=== PATIENT | female | born 1980 | race Caucasian/White ===

== ENCOUNTER → 2022-06-02 08:09 | Outpatient (BNVA) | payer OTHER, SELFPAY | PROVIDERS: Visit Provider Specialist | DX: M25.561 Pain in right knee (principal) | CPT/HCPCS: 73560; 73565 ==

== ENCOUNTER 2022-06-02 11:28 | Outpatient (CLI) | payer OTHER, SELFPAY | END 2022-06-02 11:29 | disposition home or self-care (01) | LOC: SPT 11:28 | PROVIDERS: Visit Provider Specialist | DX: Z46.89 Encounter for fitting and adjustment of other specified devices (principal); M25.561 Pain in right knee | CPT/HCPCS: 97760; L1832 ==

== ENCOUNTER 2022-07-11 20:19 | Emergency (ER) | payer OTHER, MEDICAID, SELFPAY ==
[2022-07-11 20:33] VITALS: PULSE 107; RESP 16; TEMP 36.5; O2SAT 98
--- NOTE | 2022-07-11 22:56 | W.ED.EXTPRO ---
HPI - Extremity Problem General: Chief complaint: Extremity Injury, Lower Stated complaint: right food pain Time Seen by Provider: 07/11/22 22:56 History of Present Illness: 41-year-old female comes in today for complaints of twitching in her right leg. Patient has a injury to her right lower extremity that since having the injury has had increased muscle spasm and twitching spells to her right lower leg. Patient appears nontoxic. Patient appears in mild pain. Associated symptoms: Deny fever(s) Review of Systems Const: Denies: fever(s) Resp: Denies: dyspnea Musc: Reports: extremity pain and muscle cramps [facility] ED PFSH: Social History Smoking and tobacco status: current every day smoker Physical Exam Const: COMMON NORMALS: alert HENMT: COMMON NORMALS: atraumatic HEAD & SCALP: atraumatic Resp: COMMON NORMALS: normal respiratory effort and clear to auscultation bilaterally AUSCULTATION: clear to auscultation bilaterally Cardio: COMMON NORMALS: regular rate and regular rhythm RATE: regular rate RHYTHM: regular rhythm Extremity: RIGHT LOWER EXTREMITY: Yes knee joint (Tenderness) Neuro: SENSORIUM/ORIENTATION: Yes alert Skin: COMMON NORMALS: no rashes or lesions noted GENERAL SKIN EXAM: no rashes or lesions noted Course Vital Signs: Vital signs: Vital Signs Temperature 97.7 F 07/11/22 20:33 Pulse Rate 107 H 07/11/22 20:33 Respiratory Rate 16 07/11/22 20:33 Pulse Oximetry 98 07/11/22 20:33 Oxygen Delivery Me thod 07/11/22 20:33 MDM - Extremity (Nontraumatic) Medical Decision Making Patient comes in for pain and twitching to her right lower extremity since injuring it over 2 months ago. Patient has been seen by the orthopedist and is being further evaluated for nerve injury or other abnormalities. On exam extremity appears unremarkable. Patient does wear a knee immobilizer. No obvious swelling or erythema is noted to the leg. Differential diagnosis includes but not limited to lumbar radiculopathy, muscle spasms, malingering, conversion disorder. Patient should continue her care with her orthopedist with recommendations of treatment and further evaluation. Patient was given a 30 mg injection of Toradol for pain, 60 mg of orphenadrine for muscle spasm, and 1 mg of Ativan for twitching. I suspect patient probably has a personality disorder that is exaggerating her injury. We will give her lorazepam 1 mg to take at bedtime so that she can rest and hopefully improve her symptoms. Patient should continue with her routine care as prescribed by her primary care. Discharge Plan Discharge Patient Disposition: Home Clinical Impression: Muscle spasm Condition: Stable Prescriptions: New lorazepam 1 mg tablet 1 mg PO DAILY PRN (Reason: muscle spasm, sleep) Qty: 10 0RF No Action tizanidine 4 mg capsule 4 mg PO Q8H PRN tramadol 50 mg tablet 50 mg PO Q4H PRN (DME) EDWARDO See Rx Instructions .ROUTE .MEDSUPPLY Qty: 1 0RF Rx Instructions: As directed Discharge Orders: Discharge ED (Routine); Ordered 07/11/22 Ordered By: Abrahan Alvarez Referrals: Sylvia Lopez, STRAP SETTER [Primary Care Provider] - Discharge Diet: Usual diet Discharge Activity: Increase activity as tolerated Patient Instructions: Muscle Spasm (ED), Pain Management Activity Restrictions/Additional Instructions: Activity as tolerated. Gentle stretching and range of motion exercises. Use lorazepam in the late evening to help control spasms at night. Follow-up with primary care for further instruction and evaluation. Return to ER for worsening symptoms such as increased redness and swelling to the extremity, fever greater than 100.4, or new concerns. Coding Level of Care Code ED Welt S[employer] Layer for Yfn Mohr
[2022-07-11 23:37] VITALS: BP 136/77; PULSE 98; RESP 16; TEMP 36.5; O2SAT 98
[2022-07-11] MEDS: ketorolac 30 mg/mL INJ IM (23:37)
[2022-07-11] MEDS: orphenadrine 30 mg/mL Inj 2 mL 60 MG IM (23:37)
[2022-07-11] MEDS: LORazepam 1 mg Tablet PO (23:37)
== END 2022-07-11 23:39 | disposition home or self-care (01) ==
PROVIDERS: Emergency Provider Nurse Practitioner Family; PCP Nurse Practitioner Primary Care
DX: M62.838 Other muscle spasm (principal)
CPT/HCPCS: 96372; 99284; J1885; J2360

== ENCOUNTER 2022-07-18 07:55 | Outpatient (CLI) | payer OTHER, MEDICAID, SELFPAY ==
--- NOTE | 2022-07-18 09:30 | MR_ITS ---
WS: [id number] MRI right knee arthrogram, pre and postcontrast. COMPARISON: No similar studies. HISTORY: Remote surgery RIGHT knee. New pain after fall 2010 weeks ago. Precontrast: Noncontrast multisequence evaluation through the knee has been performed. Normal appearance of the ACL and PCL. Distal quadriceps tendon and patellar tendon are normal. There is a very small amount of fluid in the suprapatellar bursa. No meniscal tear is identified. No signif icant marrow edema or fracture. No Castillo's cyst. Seen best on the coronal T2 fat saturation images is a 2.3 mm hypointense nodule within the fluid of the medial compartment. This is close to the interco ndylar notch. This is probably a small loose body. May be a cartilage fragment the donor site is not evident. Very minimal surface irregularity involving the medial tibial plateau. Postcontrast: Good contrast distention of the knee joint. There is an air bubble noted within the sup rapatellar contrast. There is a very tiny superficial cartilaginous defect which fills with contrast involving the lateral patellar facet. No underlying marrow abnormality. No meniscal tears. No contras t extends into the meniscus and the ACL is intact. Again noted is that small loose body in the medial joint space adjacent to the PCL. MR/MR knee RT wo/w con [id number] IMPRESSION: 1. No meniscal tear or ACL tear. 2. Superficial small cartilaginous defect lateral patellar facet. 3. Small loose body type nodule measuring 2.3 mm in the medial joint space. May be a cartilage or meniscal fragment. No donor site evident. 4. Very minimal early degenerative changes superficial medial tibial plateau.
== END 2022-07-18 07:56 | disposition home or self-care (01) ==
LOC: RAD 07:57
PROVIDERS: PCP Nurse Practitioner Primary Care; Visit Provider Specialist
DX: S89.91XA Unspecified injury of right lower leg, initial encounter (principal); W19.XXXA Unspecified fall, initial encounter
CPT/HCPCS: 73723

== ENCOUNTER 2022-07-18 07:55 | Outpatient (CLI) | payer OTHER, MEDICAID, SELFPAY ==
--- NOTE | 2022-07-18 09:00 | IR_ITS ---
WS: [id number] RIGHT KNEE ARTHROGRAM (FLUOROSCOPY) RIGHT arthrogram was performed in fluoroscopy prior to MRI evaluation. HISTORY: knee injury and previous surgery COMPARISON: Radiograph 06/02/2022 Procedure, risks and complications were explained to the patient. Complications include but not limit ed to bleeding, infection and contrast reaction. Current medications are reviewed. Skin is cleansed with ChloraPrep. Skin is anesthetized with 1% buffered lidocaine. 22-gauge needle is inserted into the lateral patellofemoral joint space. Approximately 25 cc of gadolinium mixture inje cted without complication. Patient will proceed to MRI evaluation immediately. No complications were encountered. Patient is instructed to watch for post procedure infection or ble eding. Patient is also instructed to contact the radiology department with any concerns. IR/[place] [id number] IMPRESSION: Uncomplicated RIGHT knee joint injection prior to MRI arthrogram.
[2022-07-18] MEDS: iohexol 240 mg/mL 50 mL Btl INTRA-ARTI (10:29)
[2022-07-18] MEDS: gadobenate dimeglumine 5 mL vial XX (10:31)
== END 2022-07-18 07:56 | disposition home or self-care (01) ==
LOC: RAD 07:57
PROVIDERS: PCP Nurse Practitioner Primary Care; Visit Provider Specialist
DX: S89.91XA Unspecified injury of right lower leg, initial encounter (principal); X58.XXXA Exposure to other specified factors, initial encounter
CPT/HCPCS: 27369; 77002

== ENCOUNTER → 2023-03-20 08:24 | Outpatient (BNVA) | payer MEDICAID, SELFPAY | PROVIDERS: PCP Nurse Practitioner Primary Care; Visit Provider Podiatrist Foot & Ankle Surgery | DX: G90.521 Complex regional pain syndrome I of right lower limb (principal); F44.6 Conversion disorder with sensory symptom or deficit | CPT/HCPCS: 73630 ==

== ENCOUNTER 2023-04-03 06:19 | Outpatient (CLI) | payer MEDICAID, SELFPAY | END 2023-04-03 06:20 | disposition home or self-care (01) | LOC: SPT 06-23 06:20 | PROVIDERS: PCP Nurse Practitioner Primary Care; Visit Provider Podiatrist Foot & Ankle Surgery | DX: Z46.89 Encounter for fitting and adjustment of other specified devices (principal); M79.671 Pain in right foot | CPT/HCPCS: L4361 ==

== ENCOUNTER 2023-08-02 00:04 | Emergency (ER) | payer MEDICAID, SELFPAY ==
[2023-08-02 00:07] VITALS: BP 112/89; PULSE 92; RESP 18; TEMP 36.4; O2SAT 97; BMI 32.2
[2023-08-02 00:13] VITALS: RESP 18; O2SAT 98
--- NOTE | 2023-08-02 00:55 | XRR_ITS ---
PROCEDURE INFORMATION: Exam: XR Lumbosacral Spine Exam date and time: 08/02/2023 1:31 AM Age: 43 years old Clinical indication: Patient HX: C/O low back pain. No injury. ; Additional info: R sided back pain TECHNIQUE: Imaging protocol: Radiologic exam of the lumbosacral spine. Views: 2 or 3 views. COMPARISON: No relevant prior studies available. FINDINGS: Bones/joints: Normal. No acute fracture. Normal alignment. Soft tissues: Unremarkable. XR/XR lumbar spine 2-3V* [id number] IMPRESSION: No acute findings.
[2023-08-02 01:16] VITALS: RESP 18; O2SAT 98
[2023-08-02] MEDS: HYDROmorphone 1 mg/mL INJ 1 mL 2 MG IM (01:16)
[2023-08-02] MEDS: ondansetron 4 MG Tablet PO (01:16)
[2023-08-02] MEDS: ketorolac 60 mg/2 mL INJ IM (01:17)
--- NOTE | 2023-08-02 01:37 | W.ED.EXTPRO ---
HPI - Extremity Problem General: Chief complaint: Extremity Injury, Lower Stated complaint: BACK AND LEG PAIN Time Seen by Provider: 08/02/23 00:12 History of Present Illness: 43-year-old female evidently with a history of CRPS of the right foot. She presents after stepping off a curb feeling a sharp pain to the right side of her low back, that radiated down her leg. Pain radiates down the lateral thigh into the leg. No weakness. No loss of bowel or bladder control. No numbness to the groin or genital areas. Pain is excruciating she says. She took tramadol x2 and cyclobenzaprine at home without significant improvement. She denies fever. Associated symptoms: Deny chest pain, fever(s) or rash Review of Systems Const: Denies: fever(s) Eyes: Denies: change in vision ENMT: Denies: throat pain Card: Denies: chest pain or palpitations Resp: Denies: dyspnea, productive cough or non-productive cough GI: Denies: abdominal pain or vomiting Musc: Reports: back pain; Denies: neck pain Skin/Breast: Denies: rash PFSH ED PFSH: Social History Smoking and tobacco status: current every day smoker Alcohol intake: never Substance/Drug Use: never Physical Exam Const: GENERAL APPEARANCE: cooperative and anxious; not frail appearing HENMT: COMMON NORMALS: normocephalic, atraumatic and Normal external nose present HEAD & SCALP: normocephalic and atraumatic FACE & SINUS: normal facial exam and face symmetric NOSE: Normal external nose present Eye: COMMON NORMALS: Equal, round and reactive pupils present and EOMs intact bilaterally PUPIL: Yes Equal, round and reactive pupils present Neck/C-Spine: GENERAL: Yes trachea midline Chest: CHEST: Yes Symmetrical chest wall rise Resp: COMMON NORMALS: normal respiratory effort, No retractions, No use of accessory muscles and clear to auscultation bilaterally AUSCULTATION: clear to auscultation bilaterally Cardio: COMMON NORMALS: regular rate and regular rhythm RATE: regular rate RHYTHM: regular rhythm GI: COMMON NORMALS: Normal to inspection, nondistended, normoactive bowel sounds present Back/Pelvis: OTHER: Examination reveals tenderness to palpation over the right SI joint, lumbosacral junction, and L5. There is some gluteal tenderness as well. Muscle spasm palpated on the right. None on the left. Less significant midline tenderness. Extremity: COMMON NORMALS: no pedal edema Neuro: MOLLY COMA SCALE: document GCS findings [place] coma scale eye opening: Spontaneous [place] coma scale verbal response: Orientated [place] coma scale motor response: Obey commands [place] coma scale total score: 15 SENSORY EXAM: Yes extremities (intact) Psych: COMMON NORMALS: speech normal SPEECH: Yes normal speech Skin: COMMON NORMALS: no rashes or lesions noted GENERAL SKIN EXAM: no rashes or lesions noted Course Vital Signs: Vital signs: Vital Signs Temperature 97.5 F L 08/02/23 00:07 Pulse Rate 89 08/02/23 03:04 Respiratory Rate 18 08/02/23 03:04 Blood Pressure 139/72 08/02/23 03:04 Pulse Oximetry 97 08/02/23 03:04 Oxygen Delivery Me thod Room Air 08/02/23 00:13 MDM - Extremity (Nontraumatic) Medical Decision Making X-ray reveals significant disc space narrowing at L5-S1. No fractures. Pain is improved after injections here. She will also receive oral dexamethasone here, followed by steroid taper. Outpatient follow-up. Lab Data Radiology Impressions Lumbar Spine X-Ray 08/02/23 00:55 IMPRESSION: No acute findings. XR interpretation done by ED provider, pending radiology final review Discharge Plan Discharge Patient Disposition: Home Clinical Impression: Lumbar radiculopathy, acute Condition: Stable Prescriptions: New Percocet 7.5-325 mg tablet 1 tab PO Q6H PRN (Reason: pain) Qty: 7 0RF Medrol (Balaji) 4 mg tablets,dose pack See Rx Instructions .ROUTE .COMPLEX Qty: 21 0RF Rx Instructions: orally per package directions No Action diazepam 10 mg tablet 10 mg PO ONCE PRN (Reason: anxiety) 1 Days Qty: 2 3RF Rx Instructions: Take 1 prior to procedure and repeat if necessary flexril 10 mg PO BID Qty: 30 1RF clotrimazole-betamethasone 1-0.05 % cream 1 applic topical BID 28 Days Qty: 45 0RF (DME) AFO Brace to The Right Ankle See Rx Instructions .Route .MEDSUPPLY Qty: 1 0RF Rx Instructions: As directed tramadol 50 mg tablet 50 mg PO Q4H PRN gabapentin 400 mg capsule 800 mg PO TID 90 Days Qty: 540 3RF Rx Instructions: 800 mg orally three times daily (DME) CAM Boot See Rx Instructions .Route .MEDSUPPLY Qty: 1 0RF Rx Instructions: As directed Botox 100 unit recon soln 300 unit SUBCUT ONCE Qty: 3 0RF omeprazole 20 mg capsule,delayed release(DR/EC) 20 mg PO DAILY cyclobenzaprine 10 mg tablet See Rx Instructions .ROUTE .COMPLEX Qty: 30 0RF Dose Instruction: TAKE 1 TABLET BY MOUTH EVERY 12 HOURS Rx Instructions: TAKE 1 TABLET BY MOUTH EVERY 12 HOURS Discharge Orders: Discharge ED (Routine); Ordered 08/02/23 Ordered By: Etienne Lloyd Referrals: Sylvia Lopez, CERAMIC TILE INSTALLER [Primary Care Provider] - 1-3 days Patient Instructions: Lumbar Radiculopathy (ED), Opioid Safety, Pain Management Activity Restrictions/Additional Instructions: Medications as directed. Ice or heat may help. Gentle stretching may help as well. Follow-up with your doctor this coming week. Further treatment or testing may be needed. Alternate pain medication with anti-inflammatories. Coding Level of Care Code ED Diversity Intern for Yfn Mohr
[2023-08-02] MEDS: dexamethasone 4 mg Tablet 10 MG PO (02:17)
[2023-08-02] MEDS: orphenadrine 30 mg/mL Inj 2 mL 60 MG IM (02:22)
[2023-08-02 03:04] VITALS: BP 139/72; PULSE 89; RESP 18; O2SAT 97
== END 2023-08-02 03:06 | disposition home or self-care (01) ==
PROVIDERS: Emergency Provider Emergency Medicine; PCP Nurse Practitioner Primary Care
DX: M54.16 Radiculopathy, lumbar region (principal); F17.210 Nicotine dependence, cigarettes, uncomplicated
CPT/HCPCS: 72100; 96372; 99284; J1170; J1885; J2360; J8540; Q0162

== ENCOUNTER 2023-09-04 20:54 | Emergency (ER) | payer MEDICAID, SELFPAY ==
[2023-09-04 20:59] VITALS: BP 109/76; PULSE 98; RESP 18; TEMP 36.8; O2SAT 97; BMI 32.2
--- NOTE | 2023-09-04 21:11 | ED_ITS ---
HPI - Headache General: Chief Complaint: Headache Stated Complaint: Headache Time Seen by Provider: 09/04/23 21:11 History of Present Illness: 43-year-old female comes in today with complaints of headache. Patient reports that she started having had a headache 3 days ago and over the last 2 days is progressed to a migraine headache. Patient is light sensitive with nausea. Patient has used home medications with minimal to no relief of pain. Patient does routinely take narcotics for chronic pain syndrome. Patient appears nontoxic. Patient appears in moderate to severe pain. Associated symptoms: Reports nausea; Deny chest pain or fever(s) Review of Systems General: Reports: 10 or more systems reviewed and unremarkable except in HPI and below Const: Denies: fever(s) Eyes: Reports: photophobia Card: Denies: chest pain Resp: Denies: dyspnea GI: Reports: nausea Neuro: Reports: headache(s) PFSH ED PFSH: Social History Smoking and tobacco/nicotine status: current every day tobacco/nicotine user Alcohol intake: never Substance/Drug Use: never Physical Exam Const: COMMON NORMALS: alert HENMT: COMMON NORMALS: normocephalic HEAD & SCALP: normocephalic Neck/C-Spine: COMMON NORMALS: full ROM Resp: COMMON NORMALS: normal respiratory effort and clear to auscultation bilaterally AUSCULTATION: clear to auscultation bilaterally Cardio: COMMON NORMALS: regular rate and regular rhythm RATE: regular rate RHYTHM: regular rhythm Back/Pelvis: COMMON NORMALS: thoracic and lumbar spine normal to inspection Extremity: COMMON NORMALS: normal to inspection NARRATIVE EXTREMITY EXAM: Leg brace to the right lower extremity. Neuro: SENSORIUM/ORIENTATION: Yes alert Skin: COMMON NORMALS: no rashes or lesions noted GENERAL SKIN EXAM: no rashes or lesions noted Course Vital Signs: Vital signs: Vital Signs Temperature 98.2 F 09/04/23 20:59 Pulse Rate 98 09/04/23 20:59 Respiratory Rate 18 09/04/23 20:59 Blood Pressure 109/76 09/04/23 20:59 Pulse Oximetry 97 09/04/23 20:59 Oxygen Delivery Me thod Room Air 09/04/23 20:59 MDM - Headache Medical Decision Making 43-year-old female comes in today for complaints of headache. On exam patient appears nontoxic. Patient appears in moderate to severe pain. Respirations are even lungs are clear to auscultation. Patient moves all extremities well. Patient does have a spasm in the right lower leg that she reports is uncontrollable. No focal neural deficits otherwise is noted. Differential diagnosis includes migraine headache, malingering, somatic syndrome, exacerbation of chronic pain syndrome. Headache was treated with 15 mg ketorolac, 10 mg metoclopramide, 50 mg diphenhydramine, and 10 mg of dexamethasone. Patient had good results for headache control and was discharged home. Patient was stable at discharge. No radiology studies performed this visit Discharge Plan Discharge Patient Disposition: Home Clinical Impression: Migraine Qualifiers: Migraine type: unspecified Status migrainosus presence: without status migrainosus Intractability: not intractable Qualified Code(s): G43.909 - Migraine, unspecified, not intractable, without status migrainosus Condition: Stable Prescriptions: No Action diazepam 10 mg tablet 10 mg PO ONCE PRN (Reason: anxiety) 1 Days Qty: 2 3RF Rx Instructions: Take 1 prior to procedure and repeat if necessary clotrimazole-betamethasone 1-0.05 % cream 1 applic topical BID 28 Days Qty: 45 0RF (DME) AFO Brace to The Right Ankle See Rx Instructions .Route .MEDSUPPLY Qty: 1 0RF Rx Instructions: As directed tramadol 50 mg tablet 50 mg PO Q4H PRN gabapentin 400 mg capsule 800 mg PO TID 90 Days Qty: 540 3RF Rx Instructions: 800 mg orally three times daily (DME) CAM Boot See Rx Instructions .Route .MEDSUPPLY Qty: 1 0RF Rx Instructions: As directed Botox 100 unit recon soln 300 unit SUBCUT ONCE Qty: 3 0RF omeprazole 20 mg capsule,delayed release(DR/EC) 20 mg PO DAILY cyclobenzaprine 10 mg tablet See Rx Instructions .ROUTE .COMPLEX Qty: 30 0RF Dose Instruction: TAKE 1 TABLET BY MOUTH EVERY 12 HOURS Rx Instructions: TAKE 1 TABLET BY MOUTH EVERY 12 HOURS flexril 10 mg PO BID Qty: 30 1RF Percocet 7.5-325 mg tablet 1 tab PO Q6H PRN (Reason: pain) Qty: 7 0RF Medrol (Balaji) 4 mg tablets,dose pack See Rx Instructions .ROUTE .COMPLEX Qty: 21 0RF Rx Instructions: orally per package directions Discharge Orders: Discharge ED (Routine); Ordered 09/04/23 Ordered By: Abrahan Alvarez Referrals: Sylvia Lopez FNP [Primary Care Provider] - Discharge Diet: Advance as tolerated Discharge Activity: Increase activity as tolerated Patient Instructions: Migraine Headache (ED) Activity Restrictions/Additional Instructions: Home and rest. Continue with routine care. Follow-up with primary care as n eeded for further instructions. Return to ED for new concerns. Coding Level of Care Code ED Water And Gas Helper for Yfn Mohr
[2023-09-04] MEDS: ketorolac 30 mg/mL INJ 15 MG IVP (21:44)
[2023-09-04] MEDS: diphenhydrAMINE 50 mg/mL SDV 1mL IVP (21:44)
[2023-09-04] MEDS: dexamethasone 10 mg/mL INJ IVP (21:44)
[2023-09-04] MEDS: sodium chloride 0.9% 500 ML 999 ML IV (21:45)
[2023-09-04] MEDS: metoclopramide 5 mg/mL SDV 2 mL 10 MG IVP (21:45)
== END 2023-09-04 23:01 | disposition home or self-care (01) ==
PROVIDERS: Emergency Provider Nurse Practitioner Family; PCP Nurse Practitioner Primary Care
DX: G43.909 Migraine, unspecified, not intractable, without status migrainosus (principal); Z72.0 Tobacco use
CPT/HCPCS: 96374; 96375; 99284; J1100; J1200; J1885; J2765; J7040

== ENCOUNTER 2023-09-11 14:14 | Emergency (ER) | payer MEDICAID, SELFPAY ==
[2023-09-11 14:44] VITALS: BP 121/77; PULSE 82; RESP 18; TEMP 36.8; O2SAT 99; BMI 32.8
--- NOTE | 2023-09-11 15:18 | ED_ITS ---
HPI - Extremity Problem General: Chief complaint: Extremity Injury, Lower Stated complaint: right leg/hip pain Time Seen by Provider: 09/11/23 14:19 Source: patient Mode of arrival: wheelchair Limitations: no limitations History of Present Illness: Patient is a 43-year-old female with a complex medical history involving her right lower leg here for complaints of right lower leg pain and spasm. She s tates she has been having worsening pain in her right lower extremity for several days. Patient states she started having severe spasms in the foot. Patient has seen multiple specialists for evaluation of her leg pain including Dr. Steel with pain management, Dr. Winter with neurology, Dr. Reyes with podiatry. 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 Patient states she takes flexeril, gabapentin, and tramadol daily for her symptoms. She has also received Botox from Dr. Winter. She states she has an appointment with Dr. Winter on Thursday. MD Complaint: extremity pain Onset (ago): day(s) Pain Consistency: constant Location: right and lower extremity Severity scale (1-10): 10 Quality: sharp and constant Radiation: distal Relieving factors: nothing Exacerbating factors: walking Associated symptoms: Reports no associated symptoms; Deny chest pain or fever(s) Review of Systems Const: Denies: fever(s), chills, body aches, fatigue or malaise Card: Denies: chest pain Resp: Denies: dyspnea Musc: Reports: extremity pain and muscle cramps; Denies: neck pain, back pain, extremity swelling, joint pain, joint swelling, joint redness, joint warmth, joint stiffness, decrease in muscle mass, loss of height or deformity Neuro: Reports: sensory changes (reports needle sensations to R LE) and difficulty walking; Denies: numbness in extremities PFS ED PFSH: Social History Smoking and tobacco/nicotine status: current every day tobacco/nicotine user Alcohol intake: never Substance/Drug Use: never Physical Exam Const: COMMON NORMALS: no acute distress, patient oriented x3, no limitations, alert and well nourished Resp: COMMON NORMALS: normal respiratory effort and clear to auscultation bilaterally AUSCULTATION: clear to auscultation bilaterally Cardio: COMMON NORMALS: regular rate and regular rhythm RATE: regular rate RHYTHM: regular rhythm Back/Pelvis: COMMON NORMALS: thoracic and lumbar spine normal to inspection, no thoracic nor lumbar tenderness and thoraco-lumbar ROM normal THORACIC SPINE/UPPER BACK: Yes normal to inspection, No thoracic spinal tenderness, No paraspinal muscle tenderness and No paraspinal muscle spasm LUMBAR SPINE/LOWER BACK: Yes normal to inspection, No lumbar spinal tenderness, Yes paraspinal muscle tenderness and No paraspinal muscle spasm PELVIS: Yes sciatic notch tenderness SACRUM: no tenderness COCCYX: no tenderness Extremity: COMMON NORMALS: capillary refill normal, no joint enlargement, no clubbing, cyanosis or edema, no calf tenderness and no pedal edema NARRATIVE EXTREMITY EXAM: R foot spasm; R LE is equal color/temp compared to L; distal pulses easily palpable with brisk cap refill GENERAL: Yes normal exam except as noted Neuro: COMMON NORMALS: patient oriented x3, moves all extremities and no focal motor deficits SENSORIUM/ORIENTATION: Yes alert Skin: COMMON NORMALS: no rashes or lesions noted GENERAL SKIN EXAM: no rashes or lesions noted Course Vital Signs: Vital signs: Vital Signs Temperature 98.3 F 09/11/23 14:44 Pulse Rate 82 09/11/23 14:44 Respiratory Rate 18 09/11/23 15:42 Blood Pressure 121/77 09/11/23 14:44 Pulse Oximetry 99 09/11/23 14:44 Oxygen Delivery Me thod Room Air 09/11/23 14:44 MDM - Extremity (Nontraumatic) Medical Decision Making Patient here with a complex history involving her right lower extremity. Patient feeling somewhat better after medications given here. She is requesting a different muscle relaxer at home as she feels the Flexeril is no longer working. We will try Methocarbamol. We will place her on Dexamethasone over the next few days. She can continue her Tramadol as well as her Gabapentin. She states she has follow-up with Dr. Winter on Thursday. Medical Records I reviewed the patient's medical records. No radiology studies performed this visit Discharge Plan Discharge Patient Disposition: Home Clinical Impression: Pain of right leg Condition: Stable Prescriptions: New methocarbamol 500 mg tablet 1,000 mg PO Q8H Qty: 30 0RF dexamethasone 6 mg tablet 6 mg PO DAILY Qty: 6 0RF Continued tramadol 50 mg tablet 50 mg PO Q4H PRN gabapentin 400 mg capsule 800 mg PO TID 90 Days Qty: 540 3RF Rx Instructions: 800 mg orally three times daily Discontinued cyclobenzaprine 10 mg tablet See Rx Instructions .ROUTE .COMPLEX Qty: 30 0RF Dose Instruction: TAKE 1 TABLET BY MOUTH EVERY 12 HOURS Rx Instructions: TAKE 1 TABLET BY MOUTH EVERY 12 HOURS methylprednisolone [Medrol (Balaji)] 4 mg tablets,dose pack See Rx Instructions .ROUTE .COMPLEX Qty: 21 0RF Rx Instructions: orally per package directions No Action diazepam 10 mg tablet 10 mg PO ONCE PRN (Reason: anxiety) 1 Days Qty: 2 3RF Rx Instructions: Take 1 prior to procedure and repeat if necessary clotrimazole-betamethasone 1-0.05 % cream 1 applic topical BID 28 Days Qty: 45 0RF (DME) AFO Brace to The Right Ankle See Rx Instructions .Route .MEDSUPPLY Qty: 1 0RF Rx Instructions: As directed (DME) CAM Boot See Rx Instructions .Route .MEDSUPPLY Qty: 1 0RF Rx Instructions: As directed Botox 100 unit recon soln 300 unit SUBCUT ONCE Qty: 3 0RF omeprazole 20 mg capsule,delayed release(DR/EC) 20 mg PO DAILY flexril 10 mg PO BID Qty: 30 1RF Percocet 7.5-325 mg tablet 1 tab PO Q6H PRN (Reason: pain) Qty: 7 0RF Discharge Orders: Discharge ED (Routine); Ordered 09/11/23 Ordered By: Vianca Daivs Referrals: Sylvia Lopez, RUBBING BED OPERATOR [Primary Care Provider] - Activity Restrictions/Additional Instructions: As we discussed we will switch her muscle relaxer from Flexeril to Meth ocarbamol. We will put you on steroids over the next few days. You can continue your Gabapentin and Tramadol. You may also take an ojqo-vis-dhyreys anti-inflammatory such as Ibuprofen/Motrin. Please follow-up with Dr. Winter on Thursday as scheduled. Coding Level of Care Code ED Manager Hydraulic for Yfn Mohr
[2023-09-11] MEDS: dexamethasone 10 mg/mL INJ 8 MG IV (15:36)
[2023-09-11] MEDS: ketorolac 30 mg/mL INJ IVP (15:39)
[2023-09-11 15:42] VITALS: RESP 18
[2023-09-11] MEDS: HYDROmorphone 1 mg/mL INJ 1 mL 0.5 MG IVP (15:42)
[2023-09-11] MEDS: orphenadrine 30 mg/mL Inj 2 mL 60 MG IV (15:42)
[2023-09-11 16:53] VITALS: BP 135/78; PULSE 77; O2SAT 96
== END 2023-09-11 16:57 | disposition home or self-care (01) ==
PROVIDERS: Emergency Provider Physician Assistant; PCP Nurse Practitioner Primary Care
DX: M79.604 Pain in right leg (principal); Z72.0 Tobacco use
CPT/HCPCS: 96374; 96375; 99284; J1100; J1170; J1885; J2360

== ENCOUNTER 2023-10-26 09:57 | Emergency (ER) | payer MEDICAID, SELFPAY ==
[2023-10-26 10:03] VITALS: BP 128/110; PULSE 90; RESP 96; TEMP 36.8; O2SAT 18; BMI 32.2
--- NOTE | 2023-10-26 10:06 | W.ED.LOWEXIN ---
HPI - Extremity Injury (Lower) General: Chief Complaint: Back Pain/Injury Stated Complaint: right leg and hip pain Time Seen by Provider: 10/26/23 09:59 Source: patient Mode of arrival: ambulatory History of Present Illness: 43-year-old female presents emergency room complaining of pain in her right leg with intermittent spasms which increased during the course of interview and exam. She states she was supposed to see Dr. Winter today in her office. Evidently there is some confusion with the scheduling of the appointment as it is New Year's Day. Patient has had multiple extensive workups and evaluations and has received Botox in the past for this. She has seen pain clinic as well. Notes from Dr. Winter reviewed. No recent trauma. Relieving factors: nothing Exacerbating factors: nothing Review of Systems Const: Denies: fever(s) or chills Card: Denies: chest pain Resp: Denies: dyspnea GI: Denies: abdominal pain : Denies: dysuria, urinary frequency or urinary urgency Musc: Denies: neck pain or back pain Skin/Breast: Denies: rash PFSH ED PFSH: Social History Smoking and tobacco/nicotine status: current every day tobacco/nicotine user Alcohol intake: never Substance/Drug Use: never Physical Exam Const: COMMON NORMALS: no acute distress GENERAL APPEARANCE: cooperative and comfortable ORIENTATION/CONSCIOUSNESS: Yes awake, Yes oriented to person, Yes oriented to place and Yes oriented to time HENMT: COMMON NORMALS: normocephalic, atraumatic and hearing grossly normal bilaterally HEAD & SCALP: normocephalic and atraumatic Resp: COMMON NORMALS: normal respiratory effort, No retractions, No use of accessory muscles and clear to auscultation bilaterally AUSCULTATION: clear to auscultation bilaterally Cardio: COMMON NORMALS: regular rate, regular rhythm and No murmurs present (Cardio) RATE: regular rate RHYTHM: regular rhythm GI: COMMON NORMALS: Soft to palpation and No hepatosplenomegaly present AUSCULTATION: Yes normoactive bowel sounds PALPATION: Yes Soft to palpation, No Tenderness to palpation present (GI), No Guarding due to palpation present (GI) and Yes No hepatosplenomegaly present Extremity: COMMON NORMALS: normal to inspection, capillary refill normal, no clubbing, cyanosis or edema, no calf tenderness and no pedal edema Neuro: SENSORIUM/ORIENTATION: Yes oriented to person, Yes oriented to place and Yes oriented to time Skin: COMMON NORMALS: no rashes or lesions noted GENERAL SKIN EXAM: no rashes or lesions noted Course Vital Signs: Vital signs: Vital Signs Temperature 98.3 F 10/26/23 10:03 Pulse Rate 69 10/26/23 11:32 Respiratory Rate 18 10/26/23 11:32 Blood Pressure 123/76 10/26/23 11:32 Pulse Oximetry 96 10/26/23 11:32 Oxygen Delivery Me thod Room Air 10/26/23 10:09 MDM - Extremity Injury (Lower) Medical Decision Making Symptoms slightly improved with steroids and muscle relaxer. Discharged home on steroid taper try tizanidine as a muscle relaxer stop the others follow-up with neurology. These do appear to be more functional by observation spoke with patient who the emergency room. Medical Records I reviewed the patient's medical records. No radiology studies performed this visit Discharge Plan Discharge Patient Disposition: Home Clinical Impression: Right leg pain, Complex regional pain syndrome, Functional neurological symptom disorder with anesthesia or sensory loss Condition: Stable Prescriptions: New tizanidine 4 mg tablet 4 mg PO Q6H PRN (Reason: muscle spasticity) Qty: 20 0RF Rx Instructions: do not exceed 3 doses per 24 hrs prednisone 20 mg tablet 20 mg PO TID Qty: 15 0RF Rx Instructions: 1 p.o. 3 times daily x3 days, 1 p.o. twice daily x2 days, 1 p.o. daily x2 days Discontinued flexril 10 mg PO BID Qty: 30 1RF methocarbamol 500 mg tablet 1,000 mg PO Q8H Qty: 60 0RF dexamethasone 6 mg tablet 6 mg PO DAILY Qty: 6 0RF No Action diazepam 10 mg tablet 10 mg PO ONCE PRN (Reason: anxiety) 1 Days Qty: 2 3RF Rx Instructions: Take 1 prior to procedure and repeat if necessary clotrimazole-betamethasone 1-0.05 % cream 1 applic topical BID 28 Days Qty: 45 0RF (DME) AFO Brace to The Right Ankle See Rx Instructions .Route .MEDSUPPLY Qty: 1 0RF Rx Instructions: As directed tramadol 50 mg tablet 50 mg PO Q4H PRN gabapentin 400 mg capsule 800 mg PO TID 90 Days Qty: 540 3RF Rx Instructions: 800 mg orally three times daily (DME) CAM Boot See Rx Instructions .Route .MEDSUPPLY Qty: 1 0RF Rx Instructions: As directed Botox 100 unit recon soln 300 unit SUBCUT ONCE Qty: 3 0RF omeprazole 20 mg capsule,delayed release(DR/EC) 20 mg PO DAILY Percocet 7.5-325 mg tablet 1 tab PO Q6H PRN (Reason: pain) Qty: 7 0RF Discharge Orders: Discharge ED (Routine); Ordered 10/26/23 Ordered By: Saul Reddy Referrals: Sylvia Lopez, UNDERCOLLAR MAKER [Primary Care Provider] - Discharge Diet: Usual diet Discharge Activity: Increase activity as tolerated Patient Instructions: Opioid Safety, Pain Management Activity Restrictions/Additional Instructions: Thank you for choosing [facility] for your healthcare needs today. Please realize this is an emergency room and that we are providing you with a medical screening exam and this may not be complete and all inclusive of all the testing and or work up that you may need to determine your ailment or severity of your illness. It is very important that you follow up as instructed or that you return to the Emergency Department should you have concerns or if your condition changes or worsens in any way. You were seen today for right leg pain this point in longstanding issue for you recommend you follow-up with Dr. Winter in the interim recommend you stop the other muscle relaxers Flexeril and methocarbamol instead you can try tizanidine which was prescribed today we will also give you a prednisone taper to begin tomorrow you were given prednisone IV in the emergency room. Coding Level of Care Code ED Binder Sorter for Yfn Mohr
[2023-10-26 10:09] VITALS: BP 128/110; PULSE 86; RESP 18; O2SAT 96
[2023-10-26] MEDS: orphenadrine 30 mg/mL Inj 2 mL 60 MG IVP (10:29)
[2023-10-26] MEDS: ketorolac 30 mg/mL INJ IVP (10:31)
[2023-10-26] MEDS: dexamethasone 10 mg/mL INJ IVP (10:33)
[2023-10-26 11:32] VITALS: BP 123/76; PULSE 69; RESP 18; O2SAT 96
== END 2023-10-26 11:39 | disposition home or self-care (01) ==
PROVIDERS: Emergency Provider Family Medicine; PCP Nurse Practitioner Primary Care
DX: G90.521 Complex regional pain syndrome I of right lower limb (principal); R29.818 Other symptoms and signs involving the nervous system; Z72.0 Tobacco use
CPT/HCPCS: 96374; 96375; 99284; J1100; J1885; J2360

== ENCOUNTER 2023-11-27 08:54 | Outpatient (CLI) | payer MEDICAID, SELFPAY ==
--- NOTE | 2023-11-27 09:30 | MR_ITS ---
WS: [id number] MRI LUMBAR SPINE NONCONTRAST TECHNIQUE: Sagittal T1, T2 and STIR imaging. Axial T1 and T2 imaging. CLINICAL INFORMATION: M54.50 - Low back pain, unspecified COMPARISON: None. FINDINGS: Counting performed from the craniocervical junction. S1 is partially lumbarized. Mild lumbar curve. No acute compression. No high-grade central canal stenosis. L1-L2: No significant disc bulging. Mild facet arthropathy. Spine canal and foramen are patent. L2-L3: No significant disc bulging. Mild facet arthropathy. Spinal canal and foramen are patent. L3-L4: No significant disc bulging. Mild facet arthropathy. Spinal canal and foramen are patent. L4-L5: Mild annular bulging. Moderate facet arthropathy with facet edema. Spinal canal and foramen ar e patent. L5-S1: Mild annular bulging. Slight effacement of ventral thecal sac. Slight narrowing of the LEFT mckeon barticular recess. Moderate facet arthropathy. Spinal canal and foramen are patent. Visualized pelvic bony structures: Normal. Paravertebral soft tissues: Normal. IMPRESSION: 1. Counting performed from the craniocervical junction. S1 is partially lumbarized. 2. No significant central canal stenosis. 3. Mild annular bulging L5-S1 with slight encroachment traversing LEFT S1 nerve root in the subarti cular recess. Recommend correlation LEFT S1 nerve root symptoms. 4. Moderate facet arthropathy L4-L5 and L5-S1 with a small amount of facet edema likely degenerative . 5. No other suspicious findings.
== END 2023-11-27 08:55 | disposition home or self-care (01) ==
LOC: RAD 08:55
PROVIDERS: PCP Nurse Practitioner Primary Care; Visit Provider Specialist
DX: M51.37 Other intervertebral disc degeneration, lumbosacral region (principal); M47.817 Spondylosis without myelopathy or radiculopathy, lumbosacral region
CPT/HCPCS: 72148

== ENCOUNTER → 2023-12-10 14:59 | Outpatient (BNVA) | payer MEDICAID, SELFPAY | PROVIDERS: PCP Nurse Practitioner Primary Care; Visit Provider Podiatrist Foot & Ankle Surgery | DX: F44.6 Conversion disorder with sensory symptom or deficit; M24.571 Contracture, right ankle; M24.871 Other specific joint derangements of right ankle, not elsewhere classified; R26.2 Difficulty in walking, not elsewhere classified; M25.571 Pain in right ankle and joints of right foot | CPT/HCPCS: 73650 ==

== ENCOUNTER 2024-01-20 16:38 | Emergency (ER) | payer MEDICAID, SELFPAY ==
[2024-01-20 16:42] VITALS: BP 142/85; PULSE 72; RESP 18; TEMP 36.6; O2SAT 99
--- NOTE | 2024-01-20 16:57 | XRR_ITS ---
PROCEDURE INFORMATION: Exam: XR Chest Exam date and time: 01/20/2024 5:03 PM Age: 43 years old Clinical indication: Dyspnea; Additional info: Dyspnea/cough TECHNIQUE: Imaging protocol: Radiologic exam of the chest. Views: 1 view. COMPARISON: No relevant prior studies available. FINDINGS: Lungs: Unremarkable. No consolidation. Pleural spaces: Unremarkable. No pleural effusion. No pneumothorax. Heart/Mediastinum: Unremarkable. No cardiomegaly. Bones/joints: Unremarkable. XR/XR chest 1V portable [id number] IMPRESSION: No acute plain radiographic cardiopulmonary abnormality.
[2024-01-20 17:23] LABS: Basophils # 0.1 10^3/uL (0.0-0.1); Basophils % 0.9 %; Eosinophils # 0.4 10^3/uL (0.0-0.8); Eosinophils % 5.6 %; Hematocrit 36.7 % (36-47); Lymphocytes % 38.5 %; Mean Corpuscular Hemoglobin 22.8 pg (27-33); Mean Corpuscular Volume 76.1 fl (85-98); Mean Platelet Volume 9.2 fL (7.4-10.4); Monocytes # 0.5 10^3/uL (0.2-0.9); Monocytes % 6.7 %; Neutrophils # 3.76 10^3/uL (1.8-7.7); Neutrophils % 48.2 %; Nucleated Red Blood Cells % 0 %; Platelet Count 429 10^3/cmm (157-399); Red Blood Count 4.82 10^6/uL (3.85-5.65); Red Cell Distribution Width 19.2 % (12.1-15.1); White Blood Count 7.81 10^3/uL (3.29-11.43)
[2024-01-20 17:36] LABS: Alanine Aminotransferase 14 U/L (0-33); Albumin Level 3.9 g/dL (3.5-5.2); Alkaline Phosphatase 125 U/L (35-105); Aspartate Amino Transferase 15 U/L (0-32); Blood Urea Nitrogen 6 mg/dL (6-20); Calcium 9.1 mg/dL (8.5-10.5); Carbon Dioxide 26 mmol/L (22-29); Chloride 109 mmol/L (98-107); Creatinine Clr Calc Pharmacy 143.0332; Globulin 2.8 g/dL (1.3-4.6); Glomerular Filtration Rate 110.2 mL/min (90-130); Glucose 100 mg/dL (65-115); Osmolality Calculated 294 mOsm/kg (285-295); Sodium 143 mmol/L (136-145); Total Bilirubin 0.4 mg/dL (0.15-1.2); Total Protein 6.7 g/dL (6.6-8.7)
[2024-01-20 17:59] VITALS: BP 120/87; BP 122/80; BP 127/80; PULSE 60; PULSE 62; PULSE 67
--- NOTE | 2024-01-20 18:03 | CTR_ITS ---
PROCEDURE INFORMATION: Exam: CT Head Without Contrast Exam date and time: 01/20/2024 6:27 PM Age: 43 years old Clinical indication: Other: Weakness, numbness TECHNIQUE: Imaging protocol: Computed tomography of the head without contrast. Radiation optimization: All CT scans at this facility use at least one of these dose optimization techniques: automated exposure control; mA and/or kV adjustment per patient size (includes targeted exams where dose is matched to clinical indication); or iterative reconstruction. COMPARISON: No relevant prior studies available. RADIATION DOSE METRICS: Total DLP (mGy-cm): 1091.38 FINDINGS: Brain: Normal. No hemorrhage. Unremarkable white matter. No mass effect. Cerebral ventricles: No ventriculomegaly. Paranasal sinuses: Visualized sinuses are unremarkable. No fluid levels. Mastoid air cells: Visualized mastoid air cells are well aerated. Bones/joints: Unremarkable. No acute fracture. Soft tissues: Unremarkable. CT/CT head wo con* [id number] IMPRESSION: No acute intracranial abnormality. Further evaluation with MRI may be considered if there is persistent suspicion for early stroke or other significant intracranial abnormality
--- NOTE | 2024-01-20 18:07 | W.ED.WEAKNES ---
Documented by User: Saul Reddy DO 01/29/24 06:56 HPI - Weakness General: Chief complaint: Weakness Stated complaint: body numbness, shaking, nausea Time Seen by Provider: 01/20/24 16:41 Source: patient Mode of arrival: ambulatory History of Present Illness: 43-year-old female presents emergency room with complaint of sudden onset of entire body numbness and shaking and nausea. This occurred when she bent over to put a battery into a lawnmower. It lasted for about 25 to 30 minutes her significant other was with her when it happened. He helped her get seated on the tailgate of a pickup stood whether she felt like she was going to fall over then it eventually resolved they contacted her primary care doctor who advised her to go the emergency room. She reports that previously she was thought to have had a TIA. No chest pain no abdominal pain nausea and all other symptoms has revolved resolved. She does get myoclonic jerks associated with a previous low back injury. She also has a foot drop with a brace in place on her right foot. No carpopedal spasms during this episode MD Complaint: generalized weakness Onset (ago): minute(s) Duration: intermittent and now resolved Location: generalized Severity: mild Associated symptoms: Denies chest pain, chills, dysuria or fever(s) Review of Systems Const: Denies: fever(s) or chills Card: Denies: chest pain Resp: Denies: dyspnea GI: Denies: abdominal pain : Denies: dysuria, urinary frequency or urinary urgency Musc: Denies: neck pain or back pain Skin/Breast: Denies: rash PFSH ED PFSH: Social History Smoking and tobacco/nicotine status: current every day tobacco/nicotine user Alcohol intake: never Substance/Drug Use: never Female Reproductive History: Date of last menstrual period: 01/20/24 Physical Exam Const: GENERAL APPEARANCE: cooperative and comfortable ORIENTATION/CONSCIOUSNESS: Yes awake, Yes oriented to person, Yes oriented to place and Yes oriented to time HENMT: COMMON NORMALS: normocephalic, atraumatic and hearing grossly normal bilaterally HEAD & SCALP: normocephalic and atraumatic Resp: COMMON NORMALS: normal respiratory effort, No retractions, No use of accessory muscles and clear to auscultation bilaterally AUSCULTATION: clear to auscultation bilaterally Cardio: COMMON NORMALS: regular rate, regular rhythm and No murmurs present (Cardio) RATE: regular rate RHYTHM: regular rhythm GI: COMMON NORMALS: Soft to palpation and No hepatosplenomegaly present AUSCULTATION: Yes normoactive bowel sounds PALPATION: Yes Soft to palpation, No Tenderness to palpation present (GI), No Guarding due to palpation present (GI) and Yes No hepatosplenomegaly present Extremity: COMMON NORMALS: normal to inspection, capillary refill normal, no clubbing, cyanosis or edema, no calf tenderness and no pedal edema Neuro: SENSORIUM/ORIENTATION: Yes oriented to person, Yes oriented to place and Yes oriented to time OTHER: No focal neurologic deficits noted cranial nerves II to XII grossly intact. NIH score 0 Skin: COMMON NORMALS: no rashes or lesions noted GENERAL SKIN EXAM: no rashes or lesions noted Course Vital Signs: Vital signs: Vital Signs Temperature 97.8 F 01/20/24 16:42 Pulse Rate 78 01/20/24 20:29 Respiratory Rate 16 01/20/24 20:29 Blood Pressure 120/91 01/20/24 20:29 Pulse Oximetry 100 01/20/24 20:29 Oxygen Delivery Me thod Room Air 01/20/24 16:42 MDM - Weakness Medical Decision Making Care signed out to Dr. Kendall at change of shift. See final notes for diagnosis and disposition. Lab Data 01/20/24 17:13 01/20/24 17:13 Radiology Impressions Chest X-Ray 01/20/24 16:57 IMPRESSION: No acute plain radiographic cardiopulmonary abnormality. Head CT 01/20/24 18:03 IMPRESSION: No acute intracranial abnormality. Further evaluation with MRI may be considered if there is persistent suspicion for early stroke or other significant intracranial abnormality Laboratory Results WBC 7.81 10^3/uL (3.29-11.43) 01/20/24 17:13 RBC 4.82 10^6/uL (3.85-5.65) 01/20/24 17:13 Hgb 11.00 g/dL (11.27-16.99) L 01/20/24 17:13 Hct 36.7 % (36-47) 01/20/24 17:13 MCV 76.1 fl (85-98) L 01/20/24 17:13 MCH 22.8 pg (27-33) L 01/20/24 17:13 MCHC 30.0 g/dL (30-55) 01/20/24 17:13 RDW 19.2 % (12.1-15.1) H 01/20/24 17:13 Plt Count 429 10^3/cmm (157-399) H 01/20/24 17:13 MPV 9.2 fL (7.4-10.4) 01/20/24 17:13 Neut % (Auto) 48.2 % 01/20/24 17:13 Lymph % (Auto) 38.5 % 01/20/24 17:13 [place] % (Auto) 6.7 % 01/20/24 17:13 Eos % (Auto) 5.6 % 01/20/24 17:13 Baso % (Auto) 0.9 % 01/20/24 17:13 Neut # (Auto) 3.76 10^3/uL (1.8-7.7) 01/20/24 17:13 Lymph # (Auto) 3.0 10^3/uL (0.8-4.8) 01/20/24 17:13 [place] # (Auto) 0.5 10^3/uL (0.2-0.9) 01/20/24 17:13 Eos # (Auto) 0.4 10^3/uL (0.0-0.8) 01/20/24 17:13 Baso # (Auto) 0.1 10^3/uL (0.0-0.1) 01/20/24 17:13 Nucleated RBC % (auto) 0 % 01/20/24 17:13 Nucleated RBCs # 0.0 /100WBC 01/20/24 17:13 D-Dimer <= 0.27 ug/mLFEU (0-0.59) 01/20/24 17:13 Sodium 143 mmol/L (136-145) 01/20/24 17:13 Potassium 4.0 mmol/L (3.5-5.1) 01/20/24 17:13 Chloride 109 mmol/L (98-107) H 01/20/24 17:13 Carbon Dioxide 26 mmol/L (22-29) 01/20/24 17:13 Anion Gap 12.0 (5-19) 01/20/24 17:13 BUN 6 mg/dL (6-20) 01/20/24 17:13 Creatinine 0.6 mg/dL (0.5-0.9) 01/20/24 17:13 GFR Calculation 110.2 mL/min (90-130) 01/20/24 17:13 Glucose 100 mg/dL (65-115) 01/20/24 17:13 Calculated Osmolality 294 mOsm/kg (285-295) 01/20/24 17:13 Calcium 9.1 mg/dL (8.5-10.5) 01/20/24 17:13 Total Bilirubin 0.4 mg/dL (0.15-1.2) 01/20/24 17:13 AST 15 U/L (0-32) 01/20/24 17:13 ALT 14 U/L (0-33) 01/20/24 17:13 Alkaline Phosphatase 125 U/L (35-105) H 01/20/24 17:13 Total Protein 6.7 g/dL (6.6-8.7) 01/20/24 17:13 Albumin 3.9 g/dL (3.5-5.2) 01/20/24 17:13 Globulin 2.8 g/dL (1.3-4.6) 01/20/24 17:13 Urine Color Light yellow (Yellow) 01/20/24 19:28 Urine Appearance Clear (CLEAR) 01/20/24 19:28 Urine pH 6 (5-7) 01/20/24 19:28 Ur Specific Ermine 1.010 (1.005-1.030) 01/20/24 19:28 Urine Protein Neg (Negative) 01/20/24 19:28 Urine Glucose (UA) Norm (Normal) 01/20/24 19:28 Urine Ketones Negative (Negative) 01/20/24 19:28 Urine Blood 3+ (Negative) H 01/20/24 19:28 Urine Nitrate Negative (Negative) 01/20/24 19:28 Urine Bilirubin Neg (Negative) 01/20/24 19:28 Urine Urobilinogen Norm mg/dL (Negative) 01/20/24 19:28 Ur Leukocyte Esterase Negative (Negative) 01/20/24 19:28 Urine RBC 0-4 /hpf (0-2) H 01/20/24 19:28 Urine WBC Rare /hpf (0-5) 01/20/24 19:28 Ur Squamous Epith Cells 0-4 /hpf (0-5) H 01/20/24 19:28 Ur Transition Epith Cell Rare /hpf 01/20/24 19:28 Amorphous Sediment Not Reportable 01/20/24 19:28 Urine Bacteria Trace /hpf (NONE) 01/20/24 19:28 Urine Mucus Trace /hpf 01/20/24 19:28 Coronavirus 229E (PCR) Not detected (NOT DETECT) 01/20/24 17:43 Influenza Type A Ag negative (Negative) 01/20/24 17:43 Influenza Type B Ag negative (Negative) 01/20/24 17:43 SARS-CoV-2 (PCR) Not detected (NOT DETECT) 01/20/24 17:43 Discharge Plan Discharge Patient Disposition: Home Clinical Impression: Vasovagal near-syncope, Paresthesia Condition: Stable Prescriptions: No Action (DME) AFO Brace to The Right Ankle See Rx Instructions .Route .MEDSUPPLY Qty: 1 0RF Rx Instructions: As directed tramadol 50 mg tablet 50 mg PO Q4H PRN (DME) CAM Boot See Rx Instructions .Route .MEDSUPPLY Qty: 1 0RF Rx Instructions: As directed Botox 100 unit recon soln 300 unit SUBCUT ONCE Qty: 3 0RF omeprazole 20 mg capsule,delayed release(DR/EC) 20 mg PO DAILY diazepam 10 mg tablet 10 mg PO ONCE PRN (Reason: anxiety) 1 Days Qty: 2 3RF Rx Instructions: Take 1 prior to procedure and repeat if necessary clotrimazole-betamethasone 1-0.05 % cream 1 applic topical BID 28 Days Qty: 45 0RF gabapentin 400 mg capsule 800 mg PO TID 90 Days Qty: 540 3RF Rx Instructions: 800 mg orally three times daily duloxetine 30 mg capsule,delayed release(DR/EC) See Rx Instructions .ROUTE .COMPLEX Qty: 30 0RF Dose Instruction: TAKE 1 CAPSULE BY MOUTH ONCE DAILY FOR CHRONIC PAIN Rx Instructions: TAKE 1 CAPSULE BY MOUTH ONCE DAILY FOR CHRONIC PAIN tizanidine 4 mg tablet 4 mg PO Q6H PRN (Reason: muscle spasticity) Qty: 20 0RF Rx Instructions: do not exceed 3 doses per 24 hrs prednisone 20 mg tablet 20 mg PO TID Qty: 15 0RF Rx Instructions: 1 p.o. 3 times daily x3 days, 1 p.o. twice daily x2 days, 1 p.o. daily x2 days Percocet 7.5-325 mg tablet 1 tab PO Q6H PRN (Reason: pain) Qty: 7 0RF Discharge Orders: Discharge ED (Routine); Ordered 01/20/24 Ordered By: Zackary Kendall Referrals: Sylvia Lopez, SCHEDULING ANALYST [Primary Care Provider] - Discharge Diet: Usual diet Discharge Activity: Resume usual activity Patient Instructions: Opioid Safety, Pain Management Activity Restrictions/Additional Instructions: Activity Restrictions/Additional Instructions: Thank you for choosing [facility] for your healthcare needs today. Please realize that you were seen in the Emergency Department and that we are providing you with an emergency medical screening exam and this may not be a complete and all inclusive of all the testing and or medical work-up that you may need to determine your ailment or severity of your illness. It is very important that you follow-up as instructed with your Primary care provider or Specialist for additional evaluation and to discuss your medical treatment plan. You may return to the Emergency Department should you have concerns or if your condition changes or worsens in any way. 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[employer] Documented by User: Zackary Kendall MD 01/20/24 19:29 HPI - Weakness General: Chief complaint: Weakness Stated complaint: body numbness, shaking, nausea Time Seen by Provider: 01/20/24 16:41 [facility] ED PFSH: Social History Smoking and tobacco/nicotine status: current every day tobacco/nicotine user Alcohol intake: never Substance/Drug Use: never Course Vital Signs: Vital signs: Vital Signs Temperature 97.8 F 01/20/24 16:42 Pulse Rate 78 01/20/24 20:29 Respiratory Rate 16 01/20/24 20:29 Blood Pressure 120/91 01/20/24 20:29 Pulse Oximetry 100 01/20/24 20:29 Oxygen Delivery Me thod Room Air 01/20/24 16:42 MDM - Weakness Medical Decision Making Care signed out to Dr. Kendall at change of shift. See final notes for diagnosis and disposition. I have discussed the patient's case with the off going physician <Dr. Reddy > and I have assumed care of the patient. We have discussed the current lab/radiographic results that have been resulted and the pending tests. I discussed the laboratory and radiographic findings with the patient and discussed the importance of follow-up with the patient has had a previous CVA with residual/long-term effects. I suspect and discussed with her that some of her medications may have contributed to her near syncope. Patient states that she did notice a pain in her lower back just before she had her episode of near passing out. She states she does have chronic low back pain and nerve pain to her lower back. She is back to her baseline at present. She has no new neurological deficits or motor weakness. I will discharge her home and the patient agrees with the plan of care and follow-up. Medical Records I reviewed the patient's medical records. Lab Data I reviewed the patient's lab results. 01/20/24 17:13 01/20/24 17:13 Radiology Impressions Chest X-Ray 01/20/24 16:57 IMPRESSION: No acute plain radiographic cardiopulmonary abnormality. Head CT 01/20/24 18:03 IMPRESSION: No acute intracranial abnormality. Further evaluation with MRI may be considered if there is persistent suspicion for early stroke or other significant intracranial abnormality Laboratory Results WBC 7.81 10^3/uL (3.29-11.43) 01/20/24 17:13 RBC 4.82 10^6/uL (3.85-5.65) 01/20/24 17:13 Hgb 11.00 g/dL (11.27-16.99) L 01/20/24 17:13 Hct 36.7 % (36-47) 01/20/24 17:13 MCV 76.1 fl (85-98) L 01/20/24 17:13 MCH 22.8 pg (27-33) L 01/20/24 17:13 MCHC 30.0 g/dL (30-55) 01/20/24 17:13 RDW 19.2 % (12.1-15.1) H 01/20/24 17:13 Plt Count 429 10^3/cmm (157-399) H 01/20/24 17:13 MPV 9.2 fL (7.4-10.4) 01/20/24 17:13 Neut % (Auto) 48.2 % 01/20/24 17:13 Lymph % (Auto) 38.5 % 01/20/24 17:13 [place] % (Auto) 6.7 % 01/20/24 17:13 Eos % (Auto) 5.6 % 01/20/24 17:13 Baso % (Auto) 0.9 % 01/20/24 17:13 Neut # (Auto) 3.76 10^3/uL (1.8-7.7) 01/20/24 17:13 Lymph # (Auto) 3.0 10^3/uL (0.8-4.8) 01/20/24 17:13 [place] # (Auto) 0.5 10^3/uL (0.2-0.9) 01/20/24 17:13 Eos # (Auto) 0.4 10^3/uL (0.0-0.8) 01/20/24 17:13 Baso # (Auto) 0.1 10^3/uL (0.0-0.1) 01/20/24 17:13 Nucleated RBC % (auto) 0 % 01/20/24 17:13 Nucleated RBCs # 0.0 /100WBC 01/20/24 17:13 D-Dimer <= 0.27 ug/mLFEU (0-0.59) 01/20/24 17:13 Sodium 143 mmol/L (136-145) 01/20/24 17:13 Potassium 4.0 mmol/L (3.5-5.1) 01/20/24 17:13 Chloride 109 mmol/L (98-107) H 01/20/24 17:13 Carbon Dioxide 26 mmol/L (22-29) 01/20/24 17:13 Anion Gap 12.0 (5-19) 01/20/24 17:13 BUN 6 mg/dL (6-20) 01/20/24 17:13 Creatinine 0.6 mg/dL (0.5-0.9) 01/20/24 17:13 GFR Calculation 110.2 mL/min (90-130) 01/20/24 17:13 Glucose 100 mg/dL (65-115) 01/20/24 17:13 Calculated Osmolality 294 mOsm/kg (285-295) 01/20/24 17:13 Calcium 9.1 mg/dL (8.5-10.5) 01/20/24 17:13 Total Bilirubin 0.4 mg/dL (0.15-1.2) 01/20/24 17:13 AST 15 U/L (0-32) 01/20/24 17:13 ALT 14 U/L (0-33) 01/20/24 17:13 Alkaline Phosphatase 125 U/L (35-105) H 01/20/24 17:13 Total Protein 6.7 g/dL (6.6-8.7) 01/20/24 17:13 Albumin 3.9 g/dL (3.5-5.2) 01/20/24 17:13 Globulin 2.8 g/dL (1.3-4.6) 01/20/24 17:13 Urine Color Light yellow (Yellow) 01/20/24 19:28 Urine Appearance Clear (CLEAR) 01/20/24 19:28 Urine pH 6 (5-7) 01/20/24 19:28 Ur Specific Ermine 1.010 (1.005-1.030) 01/20/24 19:28 Urine Protein Neg (Negative) 01/20/24 19:28 Urine Glucose (UA) Norm (Normal) 01/20/24 19:28 Urine Ketones Negative (Negative) 01/20/24 19:28 Urine Blood 3+ (Negative) H 01/20/24 19:28 Urine Nitrate Negative (Negative) 01/20/24 19:28 Urine Bilirubin Neg (Negative) 01/20/24 19:28 Urine Urobilinogen Norm mg/dL (Negative) 01/20/24 19:28 Ur Leukocyte Esterase Negative (Negative) 01/20/24 19:28 Urine RBC 0-4 /hpf (0-2) H 01/20/24 19:28 Urine WBC Rare /hpf (0-5) 01/20/24 19:28 Ur Squamous Epith Cells 0-4 /hpf (0-5) H 01/20/24 19:28 Ur Transition Epith Cell Rare /hpf 01/20/24 19:28 Amorphous Sediment Not Reportable 01/20/24 19:28 Urine Bacteria Trace /hpf (NONE) 01/20/24 19:28 Urine Mucus Trace /hpf 01/20/24 19:28 Coronavirus 229E (PCR) Not detected (NOT DETECT) 01/20/24 17:43 Influenza Type A Ag negative (Negative) 01/20/24 17:43 Influenza Type B Ag negative (Negative) 01/20/24 17:43 SARS-CoV-2 (PCR) Not detected (NOT DETECT) 01/20/24 17:43 All radiology interpretation(s) finalized by discharge Discharge Plan Discharge Patient Disposition: Home Clinical Impression: Vasovagal near-syncope, Paresthesia Condition: Stable Prescriptions: No Action (DME) AFO Brace to The Right Ankle See Rx Instructions .Route .MEDSUPPLY Qty: 1 0RF Rx Instructions: As directed tramadol 50 mg tablet 50 mg PO Q4H PRN (DME) CAM Boot See Rx Instructions .Route .MEDSUPPLY Qty: 1 0RF Rx Instructions: As directed Botox 100 unit recon soln 300 unit SUBCUT ONCE Qty: 3 0RF omeprazole 20 mg capsule,delayed release(DR/EC) 20 mg PO DAILY diazepam 10 mg tablet 10 mg PO ONCE PRN (Reason: anxiety) 1 Days Qty: 2 3RF Rx Instructions: Take 1 prior to procedure and repeat if necessary clotrimazole-betamethasone 1-0.05 % cream 1 applic topical BID 28 Days Qty: 45 0RF gabapentin 400 mg capsule 800 mg PO TID 90 Days Qty: 540 3RF Rx Instructions: 800 mg orally three times daily duloxetine 30 mg capsule,delayed release(DR/EC) See Rx Instructions .ROUTE .COMPLEX Qty: 30 0RF Dose Instruction: TAKE 1 CAPSULE BY MOUTH ONCE DAILY FOR CHRONIC PAIN Rx Instructions: TAKE 1 CAPSULE BY MOUTH ONCE DAILY FOR CHRONIC PAIN tizanidine 4 mg tablet 4 mg PO Q6H PRN (Reason: muscle spasticity) Qty: 20 0RF Rx Instructions: do not exceed 3 doses per 24 hrs prednisone 20 mg tablet 20 mg PO TID Qty: 15 0RF Rx Instructions: 1 p.o. 3 times daily x3 days, 1 p.o. twice daily x2 days, 1 p.o. daily x2 days Percocet 7.5-325 mg tablet 1 tab PO Q6H PRN (Reason: pain) Qty: 7 0RF Discharge Orders: Discharge ED (Routine); Ordered 01/20/24 Ordered By: Zackary Kendall Referrals: Sylvia Lopez, SCHEDULING ANALYST [Primary Care Provider] - Discharge Diet: Usual diet Discharge Activity: Resume usual activity Patient Instructions: Opioid Safety, Pain Management Activity Restrictions/Additional Instructions: Activity Restrictions/Additional Instructions: Thank you for choosing [facility] for your healthcare needs today. Please realize that you were seen in the Emergency Department and that we are providing you with an emergency medical screening exam and this may not be a complete and all inclusive of all the testing and or medical work-up that you may need to determine your ailment or severity of your illness. It is very important that you follow-up as instructed with your Primary care provider or Specialist for additional evaluation and to discuss your medical treatment plan. You may return to the Emergency Department should you have concerns or if your condition changes or worsens in any way. 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
[2024-01-20 18:26] LABS: Influenza A by IFA negative (Negative); Influenza B by IFA negative (Negative)
[2024-01-20 18:46] LABS: D Dimer <= 0.27 ug/mLFEU (0-0.59)
[2024-01-20 19:52] LABS: Add Urine Microscopic? YES; Bilirubin Urine Neg (Negative); Blood Urine 3+ (Negative); Glucose Urine UA Norm (Normal); Ketones Urine Negative (Negative); Leukocyte Esterase Urine Negative (Negative); Nitrate Urine Negative (Negative); Protein Urine Neg (Negative); Urine Appearance Clear (CLEAR); Urine Color Light yellow (Yellow); Urobilinogen Urine Norm (Negative); pH Urine 6 (5-7)
[2024-01-20 19:53] LABS: Adenovirus Not Detected (NOT DETECT); Chlamydia Pneumoniae Not Detected (NOT DETECT); Coronavirus 229E,HKU1,NL63,OC4 Not Detected (NOT DETECT); Human Metapneumovirus Not Detected (NOT DETECT); Human Rhinovirus/Enterovirus Not Detected (NOT DETECT); Influenza A Not Detected (NOT DETECT); Influenza A H1 Not Detected (NOT DETECT); Influenza A H1-2009 Not Detected (NOT DETECT); Influenza A H3 Not Detected (NOT DETECT); Influenza B Not Detected (NOT DETECT); Mycoplasma Pneumoniae Not Detected (NOT DETECT); Parainfluenza Virus Type 1 Not Detected (NOT DETECT); Parainfluenza Virus Type 2 Not Detected (NOT DETECT); Parainfluenza Virus Type 3 Not Detected (NOT DETECT); Parainfluenza Virus Type 4 Not Detected (NOT DETECT); Respiratory Syncytial Virus A Not Detected (NOT DETECT); Respiratory Syncytial Virus B Not Detected (NOT DETECT); SARS-COV-2 Not Detected (NOT DETECT)
[2024-01-20 20:03] LABS: RBC Urine 0-4 /hpf (0-2); WBC Urine RARE /hpf (0-5)
[2024-01-20 20:04] LABS: Add Urine Culture? No; Bacteria Urine TRACE /hpf; Mucus Urine TRACE /hpf; Squamous Epithelial Cell Urine 0-4 /hpf (0-5); Transitional Epi Cells Urine RARE /hpf
[2024-01-20 20:29] VITALS: BP 120/91; PULSE 78; RESP 16; O2SAT 100
== END 2024-01-20 20:30 | disposition home or self-care (01) ==
PROVIDERS: Family Medicine; Emergency Provider Internal Medicine; PCP Nurse Practitioner Primary Care
DX: R20.2 Paresthesia of skin (principal); Z72.0 Tobacco use; Z11.52 Encounter for screening for COVID-19
CPT/HCPCS: 36415; 70450; 71045; 80053; 81001; 85025; 85378; 87635; 87804; 99284

== ENCOUNTER 2024-03-20 13:36 | Emergency (ER) | payer MEDICAID, SELFPAY ==
[2024-03-20 13:44] VITALS: BP 120/67; PULSE 82; RESP 16; TEMP 36.6; O2SAT 100; BMI 31.3
--- NOTE | 2024-03-20 14:01 | XRR_ITS ---
PROCEDURE INFORMATION: Exam: XR Right Knee Exam date and time: 03/20/2024 2:38 PM Age: 43 years old Clinical indication: Injury or trauma; Fall; Blunt trauma; Knee; Right TECHNIQUE: Imaging protocol: Radiologic exam of the right knee. Views: 3 views. COMPARISON: MR knee RT wo/w con [id number] 07/18/2022 9:30 AM FINDINGS: Bones/joints: Normal. Soft tissues: Normal. XR/XR knee RT 3V* [id number] IMPRESSION: No acute findings.
--- NOTE | 2024-03-20 14:01 | XRR_ITS ---
PROCEDURE INFORMATION: Exam: XR Lumbosacral Spine Exam date and time: 03/20/2024 2:38 PM Age: 43 years old Clinical indication: Injury or trauma; Fall; Blunt trauma (contusions or hematomas) TECHNIQUE: Imaging protocol: Radiologic exam of the lumbosacral spine. Views: 2 or 3 views. COMPARISON: MR lumbar spine wo con* [id number] 11/27/2023 10:14 AM FINDINGS: Bones/joints: No acute fracture. Normal alignment. Degenerative disc disease at L5-S1. Soft tissues: Unremarkable. XR/XR lumbar spine 2-3V* [id number] IMPRESSION: No acute findings.
--- NOTE | 2024-03-20 14:01 | XRR_ITS ---
PROCEDURE INFORMATION: Exam: XR Right Hip Exam date and time: 03/20/2024 2:38 PM Age: 43 years old Clinical indication: Injury or trauma; Fall; Blunt trauma (contusions or hematomas); Right; Hip TECHNIQUE: Imaging protocol: Radiologic exam of the right hip. Views: 2 or 3 views hip with pelvis when performed. COMPARISON: CR XR lumbar spine 2-3V* [id number] 03/20/2024 2:38 PM FINDINGS: Bones/joints: Unremarkable. No acute fracture. Soft tissues: Unremarkable. XR/XR hip RT 2-3V wo/w pel* [id number] IMPRESSION: No acute findings.
--- NOTE | 2024-03-20 15:37 | W.ED.EXTPRO ---
HPI - Extremity Problem General: Chief complaint: Extremity Injury, Lower Stated complaint: rt knee/back pain Time Seen by Provider: 03/20/24 15:27 History of Present Illness: 43-year-old female comes in today with complaints of right hip and knee pain. 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 Patient was getting out of her vehicle on Thursday when she fell when she misjudged the step. Patient since then has had some right side pain right hip pain and right knee pain. Patient appears nontoxic. No obvious bruising is noted to the area. Patient is on chronic pain medications for her prior injury and pain. Review of Systems General: Reports: 10 or more systems reviewed and unremarkable except in HPI and below PFSH ED PFSH: Social History Smoking and tobacco/nicotine status: current every day tobacco/nicotine user Alcohol intake: never Substance/Drug Use: never Physical Exam Const: COMMON NORMALS: alert HENMT: COMMON NORMALS: normocephalic HEAD & SCALP: normocephalic Neck/C-Spine: COMMON NORMALS: full ROM Resp: COMMON NORMALS: normal respiratory effort and clear to auscultation bilaterally AUSCULTATION: clear to auscultation bilaterally Cardio: COMMON NORMALS: regular rate RATE: regular rate Back/Pelvis: LUMBAR SPINE/LOWER BACK: Yes paraspinal muscle tenderness Lumbar paraspinal muscle tenderness: right Extremity: RIGHT LOWER EXTREMITY: Yes hip joint (Normal range of motion, lateral tenderness) and Yes knee joint (No swelling, no redness. Normal range of motion) Neuro: SENSORIUM/ORIENTATION: Yes alert Skin: COMMON NORMALS: turgor normal GENERAL SKIN EXAM: turgor normal Course Vital Signs: Vital signs: Vital Signs Temperature 97.8 F 03/20/24 13:44 Pulse Rate 82 03/20/24 13:44 Respiratory Rate 16 03/20/24 13:44 Blood Pressure 120/67 03/20/24 13:44 Pulse Oximetry 100 03/20/24 13:44 Oxygen Delivery Me thod Room Air 03/20/24 13:44 MDM - Extremity (Nontraumatic) Medical Decision Making Patient comes in today for complaints of injury to the right hip, low back, right knee. On exam patient moves all extremities well. Patient has been ambulatory. Pain has been persistent since an injury on Thursday. Patient had fallen while climbing out of her pickup truck. Differential diagnosis includes fracture, sprain, contusion, malingering. X-rays of the lumbar spine, right hip, and right knee were unremarkable. Reviewed exam with patient with recommendations for treatment and follow-up. Patient has pain medication at home and will continue her normal routine for her pain control. Recommended ice and heat for further comfort relief. Patient was given 1 injection of Toradol 30 mg and 1 injection of hydromorphone 1 mg. Patient was recommended to follow-up with primary care for further evaluation. XR interpretation done by ED provider, pending radiology final review Discharge Plan Discharge Patient Disposition: Home Clinical Impression: Hip pain, right Fall Qualifiers: Encounter type: initial encounter Qualified Code(s): W19.XXXA - Unspecified fall, initial encounter Condition: Stable Prescriptions: No Action (DME) AFO Brace to The Right Ankle See Rx Instructions .Route .MEDSUPPLY Qty: 1 0RF Rx Instructions: As directed tramadol 50 mg tablet 50 mg PO Q4H PRN (DME) CAM Boot See Rx Instructions .Route .MEDSUPPLY Qty: 1 0RF Rx Instructions: As directed Botox 100 unit recon soln 300 unit SUBCUT ONCE Qty: 3 0RF omeprazole 20 mg capsule,delayed release(DR/EC) 20 mg PO DAILY diazepam 10 mg tablet 10 mg PO ONCE PRN (Reason: anxiety) 1 Days Qty: 2 3RF Rx Instructions: Take 1 prior to procedure and repeat if necessary clotrimazole-betamethasone 1-0.05 % cream 1 applic topical BID 28 Days Qty: 45 0RF gabapentin 400 mg capsule 800 mg PO TID 90 Days Qty: 540 3RF Rx Instructions: 800 mg orally three times daily duloxetine 30 mg capsule,delayed release(DR/EC) See Rx Instructions .ROUTE .COMPLEX Qty: 30 0RF Dose Instruction: TAKE 1 CAPSULE BY MOUTH ONCE DAILY FOR CHRONIC PAIN Rx Instructions: TAKE 1 CAPSULE BY MOUTH ONCE DAILY FOR CHRONIC PAIN tizanidine 4 mg tablet 4 mg PO Q6H PRN (Reason: muscle spasticity) Qty: 20 0RF Rx Instructions: do not exceed 3 doses per 24 hrs prednisone 20 mg tablet 20 mg PO TID Qty: 15 0RF Rx Instructions: 1 p.o. 3 times daily x3 days, 1 p.o. twice daily x2 days, 1 p.o. daily x2 days Percocet 7.5-325 mg tablet 1 tab PO Q6H PRN (Reason: pain) Qty: 7 0RF Discharge Orders: Discharge ED (Routine); Ordered 03/20/24 Ordered By: Abrahan Alvarez Referrals: Sylvia Lopez FNP [Primary Care Provider] - Discharge Diet: Usual diet Discharge Activity: Increase activity as tolerated Patient Instructions: Musculoskeletal Pain (ED) Activity Restrictions/Additional Instructions: Try to maintain normal activity as much as possible. Use ice and heat to help control pain. Use routine medications otherwise for pain control. Follow-up with primary care for further assessment and evaluation. Return to ED for new concerns. 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
[2024-03-20 15:50] VITALS: RESP 17; O2SAT 99
[2024-03-20] MEDS: HYDROmorphone 1 mg/mL INJ 1 mL IM (15:50)
[2024-03-20] MEDS: ketorolac 30 mg/mL INJ IM (15:51)
== END 2024-03-20 16:04 | disposition home or self-care (01) ==
PROVIDERS: Emergency Provider Nurse Practitioner Family; PCP Nurse Practitioner Primary Care
DX: M25.551 Pain in right hip (principal); Z72.0 Tobacco use; W17.89XA Other fall from one level to another, initial encounter
CPT/HCPCS: 72100; 73502; 73562; 96372; 99284; J1170; J1885

== ENCOUNTER 2024-11-02 18:57 | Emergency (ER) | payer MEDICAID, SELFPAY ==
[2024-11-02 19:16] VITALS: BP 124/88; PULSE 79; RESP 16; TEMP 36.8; O2SAT 98; BMI 29.7
[2024-11-02 20:26] LABS: Bilirubin Urine Negative (Negative); Blood Urine Negative (Negative); Glucose Urine UA Negative (Normal); Ketones Urine Negative (Negative); Leukocyte Esterase Urine Trace (Negative); Nitrate Urine Negative (Negative); Protein Urine Negative (Negative); Specific Gravity, Urine 1.028 (1.005-1.030); Urine Appearance Clear (CLEAR); Urine Color Yellow (Yellow)
[2024-11-02 20:28] LABS: Add Urine Microscopic? YES; Bacteria Urine 4+ /hpf; Hyaline Casts Urine 5.77 /lpf
[2024-11-02 20:44] LABS: Basophils # 0.1 10^3/uL (0.0-0.1); Basophils % 0.9 %; Eosinophils # 0.1 10^3/uL (0.0-0.8); Eosinophils % 0.7 %; Hematocrit 49.7 % (36-47); Mean Corpuscular HGB Conc 32.2 g/dL (30-55); Mean Corpuscular Hemoglobin 29.1 pg (27-33); Mean Corpuscular Volume 90.5 fl (85-98); Mean Platelet Volume 9.7 fL (7.4-10.4); Monocytes # 0.7 10^3/uL (0.2-0.9); Monocytes % 6.5 %; Neutrophils # 7.19 10^3/uL (1.8-7.7); Neutrophils % 64.4 %; Nucleated Red Blood Cells % 0 %; Platelet Count 305 10^3/cmm (157-399); Red Blood Count 5.49 10^6/uL (3.85-5.65); Red Cell Distribution Width 14.8 % (12.1-15.1); White Blood Count 11.18 10^3/uL (3.29-11.43)
[2024-11-02 20:56] LABS: Add Urine Culture? Yes
[2024-11-02 21:05] LABS: Alanine Aminotransferase 27 U/L (0-33); Albumin Level 4.1 g/dL (3.5-5.2); Alkaline Phosphatase 171 U/L (35-105); Aspartate Amino Transferase 17 U/L (0-32); Blood Urea Nitrogen 11 mg/dL (6-20); Calcium 9.9 mg/dL (8.5-10.5); Carbon Dioxide 20 mmol/L (22-29); Chloride 103 mmol/L (98-107); Creatinine Clr Calc Pharmacy 118.0632; Globulin 3.7 g/dL (1.3-4.6); Glomerular Filtration Rate 91.8 mL/min (90-130); Glucose 96 mg/dL (65-115); Osmolality Calculated 283 mOsm/kg (285-295); Sodium 137 mmol/L (136-145); Total Bilirubin 0.3 mg/dL (0.15-1.2); Total Protein 7.8 g/dL (6.6-8.7)
[2024-11-02 21:06] LABS: Anion Gap 18.3 (5-19); Potassium 4.3 mmol/L (3.5-5.1)
--- NOTE | 2024-11-02 22:06 | ED_ITS ---
HPI - Back Pain/Injury 2 General: Chief Complaint: Back Pain/Injury Stated Complaint: entire left side pain Time Seen by Provider: 11/02/24 21:51 History of Present Illness: 44-year-old female with a history of chr onic back and nerve problems. Who presents emergency room with worsening symptoms. She said she bent over and felt something pop she thinks she been having what she thinks her muscle spasms and having pain shoot upper legs and upper back. No saddle numbness, no urinary retention or incontinence, no focal motor deficit, no sensory deficit. no recent fever. no cough. no shortness of breath. no chest pain. no abdominal pain. no nausea or vomiting. no dysuria. no altered mental status. no edema. Related Data Home Medications Medication Instructions Recorded Confirmed tramadol 50 mg tablet 50 mg PO Q4H PRN 06/02/22 09/07/24 omeprazole 20 mg capsule,delayed 20 mg PO DAILY 07/23/23 09/07/24 release aspirin 81 mg tablet,delayed 81 mg PO DAILY 09/07/24 09/07/24 release (Adult Aspirin Regimen) methocarbamol PO 09/07/24 09/07/24 Previous Rx's Medication Instructions Recorded CAM Boot #1 ea 04/03/23 AFO Brace to The Right Ankle #1 ea 05/08/23 onabotulinumtoxinA 100 unit 300 unit SUBCUT ONCE #3 ea 06/25/23 solution for injection (Botox) oxycodone-acetaminophen 7.5 mg-325 1 tab PO Q6H PRN pain #7 tabs 08/02/23 mg tablet (Percocet) prednisone 20 mg tablet 20 mg PO TID #15 tabs 10/26/23 tizanidine 4 mg tablet 4 mg PO Q6H PRN muscle spasticity 10/26/23 #20 tabs diazepam 10 mg tablet 10 mg PO ONCE PRN anxiety 24 hours 10/29/23 #2 tabs clotrimazole-betamethasone 1 1 applic topical BID 4 weeks #45 12/10/23 %-0.05 % topical cream grams gabapentin 400 mg capsule 800 mg (2 x 400 mg) PO TID 90 days 12/11/23 #540 caps duloxetine 60 mg capsule,delayed 60 mg .Route DAILY #30 ea 09/07/24 release cephalexin 500 mg tablet 500 mg PO TID 5 days #15 tabs 11/02/24 cyclobenzaprine 10 mg tablet 10 mg PO Q8H PRN muscle spasm #20 11/02/24 tabs dexamethasone 6 mg tablet 6 mg PO DAILY 5 days #5 tabs 11/02/24 diclofenac sodium 50 mg 50 mg PO BID PRN pain #14 tabs 11/02/24 tablet,delayed release tramadol 50 mg tablet 50 mg PO Q8H PRN pain #10 tabs 11/02/24 Allergies Allergy/AdvReac Type Severity Reaction Status Date / Time baclofen Allergy Unknown Unknown Verified 11/02/24 19:21 meperidine [From Demerol] Allergy inability Verified 11/02/24 19:21 to sleep Penicillins Allergy ALGY-Anaphy Verified 11/02/24 19:21 laxis morphine AdvReac Unknown Verified 11/02/24 19:21 Review of Systems 2 Narrative: Constitutional symptoms: Negative except as documented in HPI. Skin symptoms: Negative except as documented in HPI. Eye symptoms: Negative except as documented in HPI. ENMT symptoms: Negative except as documented in HPI. Respiratory symptoms: Negative except as documented in HPI. Cardiovascular symptoms: Negative except as documented in HPI. Gastrointestinal symptoms: Negative except as documented in HPI. Genitourinary symptoms: Negative except as documented in HPI. Musculoskeletal symptoms: Negative except as documented in HPI. Neurologic symptoms: Negative except as documented in HPI. Psychiatric symptoms: Negative except as documented in HPI. Endocrine symptoms: Negative except as documented in HPI. PFSH ED 2 PFSH: Social History Smoking and tobacco/nicotine status: current every day tobacco/nicotine user (1/2/-1 pack a day) Alcohol intake: never Substance/Drug Use: never Physical Exam 2 Narrative: EXAM NARRATIVE: General: Alert, no acute distress. Head: Normocephalic Neck: Trachea midline Eye: Extraocular movements are intact. Ears, nose, mouth and throat: Oral mucosa moist Respiratory: Respirations are non-labored Musculoskeletal: Normal ROM Back: no step off, no focal tenderness, some paraspinal muscle tenderness Neurological: Alert and oriented to person, place, time, and situation, No focal neurological deficit observed. Psychiatric: Cooperative, appropriate mood & affect. Course 2 Vital Signs: Vital signs: Vital Signs Temperature 98.2 F 11/02/24 19:16 Pulse Rate 79 11/02/24 19:16 Respiratory Rate 16 11/02/24 19:16 Blood Pressure 124/88 11/02/24 19:16 Pulse Oximetry 98 11/02/24 19:16 Oxygen Delivery Me thod Room Air 11/02/24 19:16 MDM - Back Pain/Injury Medical Decision Making Lab Review: Laboratory results were reviewed and interpreted by myself the emergency room physician. No leukocytosis. No anemia. No renal failure. She does have a bit of a urinary tract infection. She does report she is been having urinary symptoms and thought she might have a UTI. I reviewed the patient's medical record. Reexamination: Patient remained stable. No increased work of breathing. No altered mental status. No focal motor deficits. Assessment and plan: Back pain UTI -P.o. Keflex, p.o. Marshall, IM Decadron, IM Toradol and IM Norflex - Discharged home - Discussed plan with patient. Answered any questions. - Evaluation and treatment of this problem were appropriate in the emergency setting. Labs 11/02/24 20:38 11/02/24 20:38 Laboratory Results WBC 11.18 10^3/uL (3.29-11.43) 11/02/24 20:38 RBC 5.49 10^6/uL (3.85-5.65) 11/02/24 20:38 Hgb 16.00 g/dL (11.27-16.99) 11/02/24 20:38 Hct 49.7 % (36-47) H 11/02/24 20:38 MCV 90.5 fl (85-98) 11/02/24 20:38 MCH 29.1 pg (27-33) 11/02/24 20:38 MCHC 32.2 g/dL (30-55) 11/02/24 20:38 RDW 14.8 % (12.1-15.1) 11/02/24 20:38 Plt Count 305 10^3/cmm (157-399) 11/02/24 20:38 MPV 9.7 fL (7.4-10.4) 11/02/24 20:38 Neut % (Auto) 64.4 % 11/02/24 20:38 Lymph % (Auto) 27.0 % 11/02/24 20:38 [place] % (Auto) 6.5 % 11/02/24 20:38 Eos % (Auto) 0.7 % 11/02/24 20:38 Baso % (Auto) 0.9 % 11/02/24 20:38 Neut # (Auto) 7.19 10^3/uL (1.8-7.7) 11/02/24 20:38 Lymph # (Auto) 3.0 10^3/uL (0.8-4.8) 11/02/24 20:38 [place] # (Auto) 0.7 10^3/uL (0.2-0.9) 11/02/24 20:38 Eos # (Auto) 0.1 10^3/uL (0.0-0.8) 11/02/24 20:38 Baso # (Auto) 0.1 10^3/uL (0.0-0.1) 11/02/24 20:38 Nucleated RBC % (auto) 0 % 11/02/24 20:38 Nucleated RBCs # 0.0 /100WBC 11/02/24 20:38 Sodium 137 mmol/L (136-145) 11/02/24 20:38 Potassium 4.3 mmol/L (3.5-5.1) 11/02/24 20:38 Chloride 103 mmol/L (98-107) 11/02/24 20:38 Carbon Dioxide 20 mmol/L (22-29) L 11/02/24 20:38 Anion Gap 18.3 (5-19) 11/02/24 20:38 BUN 11 mg/dL (6-20) 11/02/24 20:38 Creatinine 0.7 mg/dL (0.5-0.9) 11/02/24 20:38 GFR Calculation 91.8 mL/min (90-130) 11/02/24 20:38 Glucose 96 mg/dL (65-115) 11/02/24 20:38 Calculated Osmolality 283 mOsm/kg (285-295) L 11/02/24 20:38 Calcium 9.9 mg/dL (8.5-10.5) 11/02/24 20:38 Total Bilirubin 0.3 mg/dL (0.15-1.2) 11/02/24 20:38 AST 17 U/L (0-32) 11/02/24 20:38 ALT 27 U/L (0-33) 11/02/24 20:38 Alkaline Phosphatase 171 U/L (35-105) H 11/02/24 20:38 Total Protein 7.8 g/dL (6.6-8.7) 11/02/24 20:38 Albumin 4.1 g/dL (3.5-5.2) 11/02/24 20:38 Globulin 3.7 g/dL (1.3-4.6) 11/02/24 20:38 Urine Color Yellow (Yellow) 11/02/24 20:20 Urine Appearance Clear (CLEAR) 11/02/24 20:20 Urine pH 6.0 (5-7) 11/02/24 20:20 Ur Specific [place] 1.028 (1.005-1.030) 11/02/24 20:20 Urine Protein Negative (Negative) 11/02/24 20:20 Urine Glucose (UA) Negative (Normal) 11/02/24 20:20 Urine Ketones Negative (Negative) 11/02/24 20:20 Urine Blood Negative (Negative) 11/02/24 20:20 Urine Nitrate Negative (Negative) 11/02/24 20:20 Urine Bilirubin Negative (Negative) 11/02/24 20:20 Urine Urobilinogen 1.0 mg/dL (Negative) 11/02/24 20:20 Ur Leukocyte Esterase Trace (Negative) A 11/02/24 20:20 Urine RBC 6-10 /hpf (0-2) 11/02/24 20:20 Urine WBC 11-20 /hpf (0-5) H 11/02/24 20:20 Ur Squamous Epith Cells 6-10 /hpf (0-5) 11/02/24 20:20 Amorphous Sediment Not Reportable 11/02/24 20:20 Urine Bacteria 4+ /hpf (NONE) H 11/02/24 20:20 Hyaline Casts 5.77 /lpf 11/02/24 20:20 No radiology studies performed this visit Discharge Plan Discharge Patient Disposition: Home Clinical Impression: Lumbar radiculopathy, Urinary tract infection Condition: Stable Prescriptions: New cyclobenzaprine 10 mg tablet 10 mg PO Q8H PRN (Reason: muscle spasm) Qty: 20 0RF dexamethasone 6 mg tablet 6 mg PO DAILY 5 Days Qty: 5 0RF tramadol 50 mg tablet 50 mg PO Q8H PRN (Reason: pain) Qty: 10 0RF diclofenac sodium 50 mg tablet,delayed release (DR/EC) 50 mg PO BID PRN (Reason: pain) Qty: 14 0RF cephalexin 500 mg tablet 500 mg PO TID 5 Days Qty: 15 0RF No Action (DME) AFO Brace to The Right Ankle See Rx Instructions .Route .MEDSUPPLY Qty: 1 0RF Rx Instructions: As directed tramadol 50 mg tablet 50 mg PO Q4H PRN (DME) CAM Boot See Rx Instructions .Route .MEDSUPPLY Qty: 1 0RF Rx Instructions: As directed Botox 100 unit recon soln 300 unit SUBCUT ONCE Qty: 3 0RF omeprazole 20 mg capsule,delayed release(DR/EC) 20 mg PO DAILY diazepam 10 mg tablet 10 mg PO ONCE PRN (Reason: anxiety) 1 Days Qty: 2 3RF Rx Instructions: Take 1 prior to procedure and repeat if necessary clotrimazole-betamethasone 1-0.05 % cream 1 applic topical BID 28 Days Qty: 45 0RF aspirin [Adult Aspirin Regimen] 81 mg tablet,delayed release (DR/EC) 81 mg PO DAILY methocarbamol PO duloxetine 60 mg capsule,delayed release(DR/EC) 60 mg .ROUTE DAILY Qty: 30 5RF Rx Instructions: 60 mg daily; gabapentin 400 mg capsule 800 mg PO TID 90 Days Qty: 540 3RF Rx Instructions: 800 mg orally three times daily tizanidine 4 mg tablet 4 mg PO Q6H PRN (Reason: muscle spasticity) Qty: 20 0RF Rx Instructions: do not exceed 3 doses per 24 hrs prednisone 20 mg tablet 20 mg PO TID Qty: 15 0RF Rx Instructions: 1 p.o. 3 times daily x3 days, 1 p.o. twice daily x2 days, 1 p.o. daily x2 days Percocet 7.5-325 mg tablet 1 tab PO Q6H PRN (Reason: pain) Qty: 7 0RF Discharge Orders: Discharge ED (Routine); Ordered 11/02/24 Ordered By: Whitley Michael Referrals: Sylvia Lopez JUNIOR AUTOMATION ENGINEER [Primary Care Provider] - Discharge Diet: As Directed Discharge Activity: Increase activity as tolerated Patient Instructions: Opioid Safety, Pain Management Activity Restrictions/Additional Instructions: Thank you for choosing [facility] for your healthcare needs today. Please realize this is an emergency room and that we are providing you with a medical screening exam and this may not be complete and all inclusive of all the testing and or work up that you may need to determine your ailment or severity of your illness. You have been screened and evaluated and felt safe for discharge. Health conditions do change or evolve sometimes and as such it is important that you follow up with your Primary Doctor to be re checked, 3-5 days is a general good time frame for follow up. You are always welcome to return to the ED for re assessment if your symptoms are worsening or you have new concerns Coding Level of Care Code ED Mincing Machine Operator for Yfn Mohr
[2024-11-02] MEDS: HYDROcodone-acetaminophen 5-325 mg Tablet 1 TAB PO (22:41)
[2024-11-02] MEDS: dexamethasone 10 mg/mL INJ IM (22:41)
[2024-11-02] MEDS: ketorolac 60 mg/2 mL INJ IM (22:41)
[2024-11-02] MEDS: orphenadrine 30 mg/mL Inj 2 mL 60 MG IM (22:41)
[2024-11-02] MEDS: cephALEXin 500 mg Capsule PO (22:42)
[2024-11-02 22:47] VITALS: BP 125/85; PULSE 74; RESP 16; O2SAT 98
== END 2024-11-02 22:54 | disposition home or self-care (01) ==
PROVIDERS: Emergency Provider Emergency Medicine; PCP Nurse Practitioner Primary Care
DX: M54.16 Radiculopathy, lumbar region (principal); N39.0 Urinary tract infection, site not specified; Z79.82 Long term (current) use of aspirin; F17.210 Nicotine dependence, cigarettes, uncomplicated
CPT/HCPCS: 36415; 80053; 81001; 85025; 87086; 96372; 99284; J1100; J1885; J2360

== ENCOUNTER 2025-03-27 07:38 | Outpatient (CLI) | payer MEDICAID, SELFPAY ==
--- NOTE | 2025-03-27 07:42 | MR_ITS ---
WS: [id number] MRI BRAIN WITH HIGH-RESOLUTION IMAGING THROUGH THE INTERNAL AUDITORY CANALS WITHOUT AND WITH CONTRAST HISTORY: MIXED CONDUCTIVE SENSORINEURAL HEARING LOSS COMPARISON: None available. TECHNIQUE: Multiplanar, multisequence imaging is performed through the brain. Additional 3 mm imaging performed in multiple planes through the internal auditory canal. Postcontrast imaging with 20 ml's of MultiHance. No acute intracranial hemorrhage, midline shift, edema or mass effect. No prior infarcts. Haney-white matter is normal. No volume loss. Ventricles and extra-axial spaces are normal. No inferior displacement of cerebellar tonsils. Clivus and pituitary gland are normal. Internal and external auditory canals: Unremarkable. Cranial nerves VII and VIII complexes: Unremarkable. No enhancement or mass. Cerebellopontine angles: Normal. Paranasal sinuses: Bilateral mucous retention cyst in the maxillary sinuses. Remaining sinuses are clear. Mastoid air cells: Normal. Calvarium and scalp: Normal. Visualized [place] and dural venous sinuses demonstrate no abnormality. MR/MR iac's wo/w con* [id number] IMPRESSION: 1. Normal MRI appearance of the internal auditory canals. No enhancing masses. 2. No prior infarcts. 3. Bilateral mucous retention cysts in the maxillary sinuses.
[2025-03-27] MEDS: gadobenate dimeglumine 20 mL vial IV (08:48)
== END 2025-03-27 07:39 | disposition home or self-care (01) ==
PROVIDERS: PCP Nurse Practitioner Primary Care; Visit Provider Specialist
DX: H90.8 Mixed conductive and sensorineural hearing loss, unspecified (principal); J34.1 Cyst and mucocele of nose and nasal sinus
CPT/HCPCS: 70553

== ENCOUNTER 2025-04-21 10:42 | Outpatient (CLI) | payer MEDICAID, SELFPAY ==
--- NOTE | 2025-04-21 11:15 | USCV_ITS ---
Shayna Lezama Age: 44 Gender: F : 1980 Exam Date: 04/21/2025 11:17 Ordering Phys: Lena Winter MD Technologist: ROCHELLE Exam Location: [facility] [place] Indication: Syncope and Collapse BP: 124 / 79 HR: 70 Rhythm: Sinus Technical Quality: Adequate MEASUREMENTS (Male / Female) Normal Values 2D ECHO LV Diastolic Diameter PLAX 4.6 cm 4.2 - 5.9 / 3.9 - 5.3 cm IVS Diastolic Thickness 0.9 cm 0.6 - 1.0 / 0.6 - 0.9 cm IVS Systolic Thickness 1.8 cm LVPW Diastolic Thickness 0.9 cm 0.6 - 1.0 / 0.6 - 0.9 cm LVPW Systolic Thickness 1.3 cm LVOT Diameter 2.0 cm LV Ejection Fraction 2D Teich 65.4 % LV Ejection Fraction MOD 4C 61.9 % LV Ejection Fraction MOD 2C 57.2 % LV Ejection Fraction 2C AL 58.1 % LA Diameter 2.9 cm RA Systolic Volume 4C AL 41.3 ml RA Systolic Volume 4C MOD 37.6 ml LA Sys Volume AL 28.3 cm cubed LA Sys Volume Index AL 13.2 cm cubed/m squared Aorta at Sinotubular Diameter 2.1 cm IVC Diameter 2.4 cm M-MODE LA Ao Ratio MM 1.7 AV Cusp Separation MM 1.2 cm DOPPLER AV Peak Velocity 121.0 cm/s LVOT Peak Velocity 90.0 cm/s AV Area Cont Eq vti 2.4 cm squared AV Area Cont Eq pk 2.2 cm squared MV Peak Velocity 71.0 cm/s MV Area PHT 4.7 cm squared Mitral E to A Ratio 0.9 TR Peak Velocity 222.0 cm/s TR Peak Gradient 19.7 mmHg TV Peak E Velocity 69.0 cm/s PV Peak Velocity 106.0 cm/s FINDINGS Left Ventricle Left ventricle is normal in size. LV systolic function is normal with EF 55 to 60%. No regional wall motion abnormalities are seen. Grade 1 diastolic dysfunction. Right Ventricle Normal in size and function Right Atrium Normal in size Left Atrium Normal in size Mitral Valve Structurally normal mitral valve. Trace mitral regurgitation Aortic Valve Grossly thickened. No significant stenosis or regurgitation Tricuspid Valve Mild tricuspid regurgitation. Pulmonary artery systolic pressure is normal Pulmonic Valve Not well visualized Pericardium Normal Aorta Normal in size IVC Not well visualized CONCLUSIONS LV systolic function is normal with EF of 55-60%. Grade 1 diastolic dysfunction. Trace mitral regurgitation Mild tricuspid regurgitation No comparison studies Anselmo Guidry MD (Electronically Signed) Final Date: 05 May 2025 13:15 S
== END 2025-04-21 10:43 | disposition home or self-care (01) ==
LOC: RAD 10:43
PROVIDERS: PCP Nurse Practitioner Primary Care; Visit Provider Specialist
DX: R55 Syncope and collapse (principal); G57.71 Causalgia of right lower limb; R93.1 Abnormal findings on diagnostic imaging of heart and coronary circulation; I35.8 Other nonrheumatic aortic valve disorders; I07.1 Rheumatic tricuspid insufficiency
CPT/HCPCS: 93306

== ENCOUNTER 2025-05-18 19:36 | Emergency (ER) | payer MEDICAID, SELFPAY ==
--- OUTSIDE RECORDS SUMMARY | 2012-11-23 09:00 | XMS_ITS | Continuity of Care Document ---
Author Organization [facility] Address [address] [place] [address] Phone Care Team Providers Care Motion Picture Director Name Role Phone Devaughn Horton MD, MD Unavailable Unavaila ble Allergies, Adverse Reactions, Alerts Substance Reaction Status Criticality penicillin G Active No Information Procedures Procedure Date Independent Medical Examination MARIA T Prolonged serv, w/o contact, 1st hr Advance Directives Directive Yes / No Effective Date File Name Resuscitation Not Answered N/A N/A Life Support Not Answered N/A N/A Intubation Not Answered N/A N/A Antibiotics Not Answered N/A N/A IV Fluid Support Not Answered N/A N/A Tube Feed Not Answered N/A N/A Other Directive N/A N/A WARNING:The information contained in this section is historical and is provided for information only and does not constitute a legal document or any assurance that the information is still accurate. Please verify the information with the leblanc of the legal document before using it for clinical purposes. Encounters Encounter Description Practice Location Reason(s) For Visit Diagnoses Date Provider Providers Copied on Encounter Independent Medical Examination [facility], [address] [facility] [address] [place] [address], [id number], [place] tel:[phone] [facility] JOINT PAIN-L/LEG Sol Cantor. [address] [facility], [address], [place], [place], [id number], [place]. tel:[phone] Family History Family Member Type Diagnosis Age At Onset No Information Payers Payer name Insurance type Covered alliance party ID Authoriza ticathy(s) [place] WC [id number] Social History Type Description Quantity Date Captured Comments Alcohol Use Details Unknown Caffeine Use Details Unknown Tobacco Use Status No Information Smoking Status Current every day smoker Smoking Tobacco Use Details Cigarette: No Details Available Cigarette: No Details Available Sex Female Vital Signs Date / Time: Height Weight BMI Pulse Rate Blood Pressure Temperature Respiratory Rate Body Surface Area Head Circumference Head Circ. Percentile Wt./Jorge Alberto. Percentile BMI percentile Pulse Ox Inhaled Ox 2:36 PM 67.00 in 77.111 kg (170.00 lbs) 26.6 3 kg/m eter (2) 115/80 mm[Hg] Chief Complaint And Reason For Visit No Information Reason For Referral Reason For Referral No Information History Of Present Illness Encounter Date Complaint History Of Prese nt Illness No Information Functional Status Date Functional Assessmen t No Information Instructions Date Instruction Additional Infor mation No Information Assessments Type Assessment Date No Information Patient Care Teams Name Effective Dates (start - stop) Status Members No Information
--- OUTSIDE RECORDS SUMMARY | 2023-10-16 09:15 | XMS_ITS | Continuity of Care Document ---
Author Organization [facility] Address [id number] [address] Phone Care Team Providers Care Nutrition Assistant Name Role Phone Aureliano Manzano DMD Unavailable Unavailable Allergies, Adverse Reactions, Alerts Substance Reaction Status Criticality amoxicillin Active No Information morphine Active No Information PENICILLIN Active No Information Medications Medication Instructions Dosage Effective Dates (start - stop) Status Comments Gralise 900 mg tablet,extended release take 2 tablet by oral route every day 1800 MG - Active tramadol ER 100 mg capsule 24h,extended release(25-75) take 1 capsule by oral route every day 100 MG - Active methocarbamol 500 mg tablet take 2 tablet by oral route 4 times every day 1000 MG - Active Procedures Procedure Date Treatment Plan Complete Limited Oral Evaluation Problem Focused Intraoral Periapical First Film Extraction, Erupted Tooth Or Exposed Nga t (Elevati Extraction, Erupted Tooth Or Exposed Nga t (Elevati Intraoral Periapical Each Additional Film Advance Directives Directive Yes / No Effective Date File Name No Information Encounters Encounter Description Practice Location Reason(s) For Visit Diagnoses Date Provider Providers Copied on Encounter [facility], [id number], [id number], [place] tel:[phone] [facility] Encounter for dental exam and cleaning w/o abnormal findings Jose Juan Bedoya. [address] [place], [address], [place]. tel:[phone] Referring Provider: Aureliano Manzano, [address] [place], [address]. tel:[phone] Family History Family Member Type Diagnosis Age At Onset No Information Payers Payer name Insurance type Covered green party ID Sherrill harrell(jose) [employer] CI [id number] Social History Type Description Quantity Date Captured Comments Alcohol Use Details No Caffeine Use Details Unknown Tobacco Use Status Heavy cigarette smok er (20-39 cigs/day) Smoking Status Heavy tobacco smoker Smoking Tobacco Use Details Cigarette: No Details Available Cigarette: 1 Packs per day Sex Female Gender Identity Female Chief Complaint And Reason For Visit No Information Reason For Referral Reason For Referral No Information Plan Of Treatment Date Type Action Status Goal Tobacco cessation counseling completed History Of Present Illness Encounter Date Complaint History Of Prese nt Illness No Information Functional Status Date Functional Assessmen t No Information Instructions Date Instruction Additional Infor mation Lifestyle education Related to D ental Examination Assessments Type Assessment Date No Information Patient Care Teams Name Effective Dates (start - stop) Status Members No Information
--- OUTSIDE RECORDS SUMMARY | 2025-05-18 19:41 | XMS_ITS | Clinical Summary ---
Author Organization [facility] Address [address] [place] [address] Care Team Providers Care Dry Cell Tester Name Role Phone Provider, Outside Primary Care Provider [phone] Source Comments PLEASE NOTE, if this patient is a minor, it may be UNLAWFUL to discuss sensitive information that is contained in these records (such as FAMILY PLANNING, MENTAL HEALTH or SUBSTANCE ABUSE) with the minor patient's parent or other person without the patient's specific authorization.[facility] Allergies Active Allergy Reactions Criticality Noted Date Comments Amoxicillin 10/16/2023 Morphine 10/16/2023 Penicillin 10/16/2023 Encounters Date Type Department Care Team Description 04/19/2025 3:45 PM CDT Office Visit [facility] [address] [place] [address] Abrahan Patrick from Last 3 Months Social History Tobacco Use Types Packs/Day Years Used Date Smoking Tobacco: Never Assessed Comments Unknown Sex and Gender Information Value Date Recorded Sex Assigned at Female 04/19/2025 11:47 AM PDT Legal Sex Female 6:07 AM PDT Gender Identity Female 04/08/2024 6:07 AM PDT Sexual Orientation Don't know 04/19/2025 11 :47 AM PDT Last Filed Vital Signs Vital Sign Reading Time Taken Comments Blood Pressure 138/98 04/19/2025 2:09 PM CDT Pulse - - Temperature - - Respiratory Rate - - Oxygen Saturation - - Inhaled Oxygen Concentration - - Weight - - Height - - Body Mass Index - - Plan of Treatment Health Maintenance Due Date Last Done Comments Anxiety Screening 1980 HPV Screening 1980 Hepatitis C Screening 1982 Lipid Screening 1980 Pap + HPV 1982 Tobacco Screening 1982 HIV Screening 1997 Relationship Safety Screening/Counseling 1997 Imm-DTaP/Tdap/Td (1 - Tdap) 2001 Imm-Hepatitis B (1 of 3 - 19 + 3-dose series) 2001 Cervical Cancer Screening 2003 Pap Smear 2003 Breast Cancer Screening (Mammogram) 2022 [id number] (1 - 2023- season) 2024 Alcohol and Drug Screen 10/26/2024 Depression Annual Screen 10/26/2024 Imm-Influenza (#1) 2025 Hypertension Screening (#1) 04/19/2026 Diabetes Screening 11/02/2026 11/02/2023, 11/02/2023 Cervical Ablation/Cold-Knife Conization Discontinued Cervical Cryotherapy Discontinued Colposcopy Discontinued Endometrial Biopsy Discontinued Excision/Leep Discontinued HPV Genotyping Discontinued Vaginal Pap Discontinued Vulvoscopy Discontinued Procedures Procedure Name Priority Date/Time Associated Diagnosis Comments LIMITED ORAL EVALUATION - PROBLEM FOCUSED Routine 04/19/2025 3:45 PM CDT Pain, dental PANORAMIC RADIOGRAPHIC IMAGE Routine 04/19/2025 3:45 PM CDT Pain, dental 15 EXTRACTION ERUPTED TOOTH OR EXPOSED ROOT Routine 04/19/2025 3:45 PM CDT Pain, dental 13 EXTRACTION ERUPTED TOOTH OR EXPOSED ROOT Routine 04/19/2025 3:45 PM CDT Pain, dental 14 EXTRACTION ERUPTED TOOTH OR EXPOSED ROOT Routine 04/19/2025 3:45 PM CDT Pain, dental from Last 3 Months Insurance [facility] DENTAL MEDICAID Care Teams Dry Cell Tester Relationship Specialty Start Date End Date Provider, Outside N/A N/A PCP - General Specialist - Other Service Providers 04/19/25
--- OUTSIDE RECORDS SUMMARY | 2025-05-18 19:41 | XMS_ITS | Clinical Summary ---
Author Organization [facility] Address [address] Attn: [place] [address] Care Team Providers Care Electrical Laboratory Technician Name Role Phone Sylvia Lopez PRENATAL GENETIC COUNSELOR Primary Care Provider Allergies Active Allergy Reactions Criticality Noted Date Comments Baclofen Dizziness Low 11/03/2023 Bee Pollen Anaphylaxis High 11/21/2016 Morphine Other (See Comments) 11/03/2023 Unknown. It is reported in her chart to the admitting physician. Penicillins Anaphylaxis High 11/21/2016 Tizanidine Nausea and Vomiting Low 06/19/2024 Medications EPINEPHrine (EPIPEN) 0.3 mg/0.3 mL Auto-Injector Inject 0.3 mg by intramuscular injection one time only. Active levothyroxine 100 mcg tablet Take 100 mcg by mouth daily screed person. 7 Active traZODone (DESYREL) 50 mg tablet Take 50 mg by mouth daily at bedtime. 7 Active gabapentin (NEURONTIN) 400 mg capsule Take 800 mg by mouth 3 times daily. 3 Active omeprazole (PriLOSEC) 20 mg Capsule, Delayed Release(E.C.) Take 20 mg by mouth 2 times daily. 4 Active traMADoL (ULTRAM) 50 mg tablet Take 100 mg by mouth every 6 hours as needed for Pain. 3 Active naloxone (NARCAN) 4 mg/spray [place], Non-Aerosol EMERGENCY USE ONLY: Administer 1 spray (4 mg) in one nostril one time. May repeat in alternating nostrils every 2-3 min until responsive or EMS arrives. 2 Each 3 4 Active methocarbamoL (ROBAXIN) 500 mg tablet Take 1,000 mg by mouth 3 times daily. Active DULoxetine (CYMBALTA) 30 mg Capsule, Delayed Release(E.C.) Take 30 mg by mouth daily. Active aspirin (ECOTRIN EC) 81 mg Tablet, Delayed Release (E.C.) Take 81 mg by mouth daily. Active predniSONE (DELTASONE) 5 mg tablet 50 mg x 2 days 40 mg x 2 days 30 mg x 2 days 20 mg x 2 days 10 mg x 2 days 5 mg x 2 days 62 Tablet 4 Active ondansetron (ZOFRAN ODT) 4 mg Tablet, Rapid Dissolve Take 1 Tablet (4 mg) by mouth every 6 hours as needed for Nausea/Emesis. Dissolve tablet on top of tongue, then swallow with saliva. 12 Tablet 4 Active Active Problems Problem Noted Date Diagnosed Date TIA (transient ischemic attack) 11/04/2023 Hypothyroidism 11/03/2023 Mood disorder 11/03/2023 Right sided numbness 11/03/2023 Muscle spasm of both lower legs 11/03/2023 Persistent dry cough 10/27/2022 SOB (shortness of breath) 10/27/2022 Acute bronchitis 10/27/2022 Postoperative abdominal pain 03/26/2017 Family History Medical History Relation Name Comments Diabetes Mother Relation Name Status Comments Father Other Mother Alive Social History Tobacco Use Types Packs/Day Years Used Date Smoking Tobacco: Every Day Cigarettes 0.5 1.6 Started: 2023; Last attempted to quit: 11/21/2015 Smokeless Tobacco: Never Tobacco Cessation:Ready to Q uit: Not Asked; Counseling Given: Not Answered Comments:Quit smoking: Vaporing now Alcohol Use Standard Drinks/Week Comments Yes 0 (1 standard drink = 0.6 oz pur e alcohol) Comments No Sex and Gender Information Value Date Recorded Sex Assigned at Not on file Legal Sex Female 2:05 PM MRI TECHNOLOGIST Gender Identity Not on file Sexual Orientation Not on file Last Filed Vital Signs Vital Sign Reading Time Taken Comments Blood Pressure 115/66 08/30/2024 2:15 AM MRI TECHNOLOGIST Pulse 73 08/30/2024 2:15 AM MRI TECHNOLOGIST Temperature 35.6 C (96.1 F) 08/30/2024 1:00 AM MRI TECHNOLOGIST Respiratory Rate 18 08/30/2024 2:15 AM MRI TECHNOLOGIST Oxygen Saturation 97% 08/30/2024 2:15 AM MRI TECHNOLOGIST Inhaled Oxygen Concentration - - Weight 87.2 kg (192 lb 3.2 oz) 08/30/2024 1:00 A M MRI TECHNOLOGIST Height 170.2 cm (5' 7 ) 08/30/2024 1:00 AM MRI TECHNOLOGIST Body Mass Index 30.1 08/30/2024 1:00 AM MRI TECHNOLOGIST Plan of Treatment Health Maintenance Due Date Last Done Comments HPV VACCINES (1 - 3-dose series) 1997 DTAP/TDAP/TD VACCINES (1 - Tdap) 2001 HEPATITIS B VACCINES (1 of 3 - 19+ 3-dose series) 06/26 HPV/Cotest (21-29) 2003 CERVICAL CANCER SCREENING 2012 HPV/Cotest (30-65) 2012 PAP SMEAR 2012 BREAST CANCER SCREENING 2022 INFLUENZA VACCINE (#1) 2025 Pre-Diabetes and Diabetes Screening 11/02/202611/02 Procedures Procedure Name Priority Date/Time Associated Diagnosis Comments HEMOGLOBIN A1C Routine 11/02/2023 2:16 PM MRI TECHNOLOGIST from Last 3 Months or Most Recently Relevant to Health Maintenance Results * HEMOGLOBIN A1C (11/02/2023 2:16 PM MRI TECHNOLOGIST) HEMOGLOBIN A1C 5.5 <=5.6 % 11/04/2023 10:21 AM MRI TECHNOLOGIST [facility] EST. AVG GLUCOSE, A1C 111 mg/dL 11/04/2023 10:21 AM [facility] Blood Venipuncture / Unknown 11/02/2023 2:16 PM MRI TECHNOLOGIST 11/02/2023 2:18 PM MRI TECHNOLOGIST Narrative [facility] - 11/04/2023 10:21 AM MRI TECHNOLOGIST HGB A1C INTERPRETATION NORMAL: <5.7% PRE-DIABETES: 5.7 - 6.4% DIABETES: 6.5% OR GREATER Willie Nick MD CHEMISTRY ORDERABLES Final R esult [facility] # [id number] [address] [place] [address] from Last 3 Months or Most Recently Relevant to Health Maintenance Insurance [facility] [id number] Advance Directives For more information, please contact: [phone] * Full Code (Latest Code Status on File) Date Activated Date Inactivated Comments 11/03/2023 12:55 AM 11/03/2023 7:47 PM Care Teams Electrical Laboratory Technician Relationship Specialty Start Date End Date Sylvia Lopez FNP [address] [place] [id number] PCP - General NURSE PRACTITIONER 01/20/22
[2025-05-18 20:08] VITALS: BP 133/71; PULSE 88; RESP 16; TEMP 36.6; O2SAT 99; BMI 31.9
--- NOTE | 2025-05-18 20:08 | XRR_ITS ---
PROCEDURE INFORMATION: Exam: XR Right Foot Exam date and time: 05/18/2025 8:44 PM Age: 44 years old Clinical indication: Pain; Foot; Right; Additional info: Pain swelling TECHNIQUE: Imaging protocol: Radiologic exam of the right foot. Views: 3 or more views. COMPARISON: CR XR foot RT min 3V* [id number] 03/20/2023 8:27 AM FINDINGS: Bones/joints: No acute fracture or dislocation. Small well corticated ossific density adjacent to the navicular bone likely represents an os naviculare. Soft tissues: Normal. XR/XR foot RT min 3V* [id number] IMPRESSION: No acute osseous findings.
--- NOTE | 2025-05-18 22:26 | W.ED.LOWEXIN ---
HPI - Extremity Injury (Lower) General: Chief Complaint: Fall Stated Complaint: Fell hurt R foot swollen Time Seen by Provider: 05/18/25 22:01 Source: patient Mode of arrival: wheelchair Limitations: no limitations History of Present Illness: Patient is a 44-year-old female presents to ED today for evaluation of pain to her right foot and ankle. She believes that she sustained an injury during a fall earlier today. Patient states she sometimes will just fall . This is apparently a chronic problem for her. She states this is due to sciatic nerve injury. She states she fell earlier today and landed directly onto her buttocks. She was able to get up after the fall and ambulate without difficulty. She states a few hours later she began noticing a throbbing to her right foot and ankle and felt like it was slightly edematous. complaint: ankle injury and foot injury Onset (ago): hour(s) Injury: Right: ankle and foot Place: home Severity: moderate Relieving factors: immobilization Exacerbating factors: weight bearing, movement and palpation Associated symptoms: Reports inability to bear weight Other symptoms: none Related Data Home Medications ?Medication ?Instructions ?Recorded ?Confirmed omeprazole 20 mg capsule,delayed 20 mg PO DAILY 07/23/23 04/17/25 release aspirin 81 mg tablet,delayed 81 mg PO DAILY 09/07/24 04/17/25 release (Adult Aspirin Regimen) levothyroxine 25 mcg capsule 25 mcg PO DAILY 03/08/25 04/17/25 Previous Rx's ?Medication ?Instructions ?Recorded AFO Brace to The Right Ankle #1 ea 05/08/23 clotrimazole-betamethasone 1 1 applic topical BID 4 weeks #45 12/10/23 %-0.05 % topical cream grams cyclobenzaprine 10 mg tablet 10 mg PO Q8H PRN muscle spasm #20 05/10/25 tabs tramadol 50 mg tablet 50 mg PO Q8H PRN pain #10 tabs 05/10/25 Allergies Allergy/AdvReac Type Severity Reaction Status Date / Time baclofen Allergy Unknown Unknown Verified 05/18/25 20:15 meperidine (From Demerol) Allergy inability Verified 05/18/25 20:15 to sleep Penicillins Allergy ALGY-Anaphy Verified 05/18/25 20:15 laxis morphine AdvReac Unknown Verified 05/18/25 20:15 Review of Systems Musc: Reports: back pain (chronic sciatica), extremity pain (R foot) and joint pain (R ankle); Denies: neck pain, extremity swelling or joint swelling Neuro: Denies: numbness in extremities or sensory changes PFSH ED PFSH: Social History Smoking and tobacco/nicotine status: current every day tobacco/nicotine user (1/2/-1 pack a day) Alcohol intake: never Substance/Drug Use: never Physical Exam Const: COMMON NORMALS: no acute distress, average body habitus, no limitations, healthy appearing, alert and well nourished Extremity: COMMON NORMALS: capillary refill normal, no clubbing, cyanosis or edema, no calf tenderness and no pedal edema GENERAL: Yes normal exam except as noted RIGHT LOWER EXTREMITY: Yes foot & digits Right ankle: Yes inspection (normal gross inspection), Yes palpation (TTP lateral ankle) and Yes neurovascular exam (normal) and Yes foot & digits Right foot and digits: Yes inspection (normal gross inspection), Yes palpation (TTP throughout dorsal R foot) and Yes neurovascular exam (normal) Neuro: COMMON NORMALS: moves all extremities, no focal motor deficits and no sensory deficits noted SENSORIUM/ORIENTATION: Yes alert Course Vital Signs: Vital signs: Vital Signs Temperature 97.9 F 05/18/25 20:08 Pulse Rate 88 05/18/25 20:08 Respiratory Rate 16 05/18/25 20:08 Blood Pressure 133/71 05/18/25 20:08 Pulse Oximetry 99 05/18/25 20:08 MDM - Extremity Injury (Lower) Medical Decision Making XRs of foot/ankle obtained and unremarkable. Will ALBERTO wrap/give crutches. RICE therapy discussed. Can follow up with PCP in 1-2 weeks if symptoms are not improving. Lab Data Radiology Impressions Foot X-Ray 05/18/25 20:08 IMPRESSION: No acute osseous findings. XR interpretation done by ED provider, pending radiology final review Discharge Plan Discharge Patient Disposition: Home Clinical Impression: Strain of right ankle and foot Condition: Stable Prescriptions: No Action (DME) AFO Brace to The Right Ankle See Rx Instructions .Route .MEDSUPPLY Qty: 1 0RF Rx Instructions: As directed levothyroxine 25 mcg capsule 25 mcg PO DAILY tramadol 50 mg tablet 50 mg PO Q8H PRN (Reason: pain) Qty: 10 0RF cyclobenzaprine 10 mg tablet 10 mg PO Q8H PRN (Reason: muscle spasm) Qty: 20 0RF omeprazole 20 mg capsule,delayed release(DR/EC) 20 mg PO DAILY clotrimazole-betamethasone 1-0.05 % cream 1 applic topical BID 28 Days Qty: 45 0RF aspirin [Adult Aspirin Regimen] 81 mg tablet,delayed release (DR/EC) 81 mg PO DAILY Discharge Orders: Discharge ED (Routine); Ordered 05/18/25 Ordered By: Vianca Davis Referrals: Sylvia Lopez FNP [Primary Care Provider, Nurse Practitioner] Patient Instructions: Ankle Sprain (DC), Patient Portal & Juan Instructions, RICE Therapy Print Language: Libyan Coding Level of Care Code 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
--- NOTE | 2025-05-18 22:31 | XRR_ITS ---
PROCEDURE INFORMATION: Exam: XR Right Ankle Exam date and time: 05/18/2025 10:44 PM Age: 44 years old Clinical indication: Injury or trauma; Fall; Blunt trauma; Ankle; Right TECHNIQUE: Imaging protocol: Radiologic exam of the right ankle. Views: 3 or more views. COMPARISON: CR (LOW EXM, ) 05/18/2025 8:44 PM FINDINGS: Bones/joints: Normal. Soft tissues: Normal. XR/XR ankle RT min 3V* [id number] IMPRESSION: No acute findings.
[2025-05-18 23:00] VITALS: BP 130/80; PULSE 86; O2SAT 98
[2025-05-18 23:26] VITALS: BP 130/80; PULSE 86; O2SAT 98
== END 2025-05-18 23:27 | disposition home or self-care (01) ==
PROVIDERS: Emergency Provider Physician Assistant; PCP Nurse Practitioner Primary Care
DX: S96.911A Strain of unspecified muscle and tendon at ankle and foot level, right foot, initial encounter (principal); Z79.82 Long term (current) use of aspirin; F17.210 Nicotine dependence, cigarettes, uncomplicated; W19.XXXA Unspecified fall, initial encounter
CPT/HCPCS: 73610; 73630; 99283

== ENCOUNTER → 2025-06-14 09:06 | Outpatient (BNVA) | payer MEDICAID, SELFPAY | PROVIDERS: PCP Nurse Practitioner Primary Care; Visit Provider Podiatrist Foot & Ankle Surgery | DX: M25.571 Pain in right ankle and joints of right foot (principal); F44.6 Conversion disorder with sensory symptom or deficit; M24.571 Contracture, right ankle; M24.871 Other specific joint derangements of right ankle, not elsewhere classified; R26.2 Difficulty in walking, not elsewhere classified; M76.71 Peroneal tendinitis, right leg; M79.671 Pain in right foot | CPT/HCPCS: 73630 ==

== ENCOUNTER 2025-07-19 08:19 | Outpatient (CLI) | payer MEDICAID, SELFPAY ==
--- NOTE | 2025-07-19 08:45 | MR_ITS ---
WS: [id number] MRI RIGHT ANKLE WITHOUT CONTRAST. COMPARISON: RIGHT ankle 05/18/2025 Multiplanar, multisequence imaging is performed without contrast. No acute fracture or marrow edema. No joint effusion. No osteochondral lesions. Normal appearance of the talar dome. Normal Achilles tendon. Plantar aponeurosis is normal. Normal course and caliber of the peroneal brevis and longus tendons. There is a very tiny amount of fluid in the peroneal brevis tendon distal to the fibula consistent with a very minimal partial tear. No full-thickness tear. Small amount of fluid in the peroneal tendon sheath. Both tendons extend distally and are well visualized. There is very slight displacement of the peroneal tendon sheath at the peroneal tubercle. Flexor hallucis longus and flexor digitorum longus and the posterior tibial tendons are normal. Anterior tibialis tendon is normal. Normal interosseous membrane. The anterior inferior and posterior inferior tibiofibular ligaments are normal. There is fluid and increased T2 signal along the anterior lissette ofibular ligament. Partial tear from the insertion to the talus. Posterior talofibular ligament is normal. Normal striations of the deltoid ligament. Calcaneofibular ligament is normal. MR/MR ankle RT wo con* [id number] IMPRESSION: 1. Small, minimal tear involving the peroneal brevis tendon posterior to the d istal fibula along with minimal tenosynovitis. Tendon is return to normal calib er distally. 2. Partial tear anterior talofibular ligament. 3. No marrow edema or joint effusion.
== END 2025-07-19 08:20 | disposition home or self-care (01) ==
LOC: RAD 08:20
PROVIDERS: PCP Nurse Practitioner Primary Care; Visit Provider Podiatrist Foot & Ankle Surgery
DX: S96.911A Strain of unspecified muscle and tendon at ankle and foot level, right foot, initial encounter (principal); X58.XXXA Exposure to other specified factors, initial encounter
CPT/HCPCS: 73721